=== PATIENT | male | born 1940 | race Caucasian/White ===

== ENCOUNTER → 2021-05-21 14:16 | Outpatient (BNVA) | payer MEDICARE, SELFPAY | PROVIDERS: PCP Internal Medicine; Visit Provider Psychiatry & Neurology Neurology | DX: G20 Parkinson's disease (principal); G47.33 Obstructive sleep apnea (adult) (pediatric); R56.9 Unspecified convulsions; Z79.899 Other long term (current) drug therapy | CPT/HCPCS: 99212 ==

== ENCOUNTER → 2021-08-20 15:04 | Outpatient (BNVA) | payer MEDICARE, SELFPAY | PROVIDERS: PCP General Practice; Visit Provider Psychiatry & Neurology Neurology | DX: G20 Parkinson's disease (principal); G25.0 Essential tremor; G47.33 Obstructive sleep apnea (adult) (pediatric); Z79.899 Other long term (current) drug therapy | CPT/HCPCS: 99212 ==

== ENCOUNTER → 2022-01-27 12:03 | Outpatient (BNVA) | payer MEDICARE, SELFPAY | PROVIDERS: Visit Provider Psychiatry & Neurology Neurology | DX: G20 Parkinson's disease (principal); G25.0 Essential tremor; G47.33 Obstructive sleep apnea (adult) (pediatric); R56.9 Unspecified convulsions | CPT/HCPCS: Q3014 ==

== ENCOUNTER 2022-10-14 05:41 | Outpatient (REF) | payer OTHER, SELFPAY ==
[2022-10-14 07:02] LABS: MANUAL DIFF FLAG NO
[2022-10-14 07:09] LABS: Basophils Absolute Auto 0.1 X10*3/uL (0.0-0.2); Basophils Percent Auto 0.6 % (0-2); Eosinophils Absolute Auto 0.3 X10*3/uL (0.0-0.4); Eosinophils Percent Auto 2.5 % (0-4); Hematocrit 42.5 % (42.0-52.0); Hemoglobin 14.4 g/dl (14.0-18.0); Imm Gran Abs Auto 0.04 X10*3/uL (0.00-0.03); Imm Gran Pct Auto 0.4 % (0.0-0.4); Lymphocytes Absolute Auto 2.5 X10*3/uL (1.2-4.9); Lymphocytes Percent Auto 25.2 % (20-40); Mean Corpuscular HGB Conc 33.9 g/dl (31.0-36.0); Mean Corpuscular Hemoglobin 31.6 pg (27.0-33.0); Mean Corpuscular Volume 93.2 fL (80.0-98.0); Mean Platelet Volume 11.1 fL (9.4-12.4); Monocytes Absolute Auto 0.7 X10*3/uL (0.1-1.2); Monocytes Percent Auto 7.2 % (2-11); Neutrophils Absolute Auto 6.4 x10*3/uL (2.0-8.3); Neutrophils Percent Auto 64.1 % (45-73); Platelet Count 159 X10*3/uL (160-400); Red Blood Count 4.56 X10*6/uL (4.60-5.80); Red Cell Distribution Width 13.6 % (11.0-16.0)
[2022-10-14 07:19] LABS: Estimated Average Glucose 114 mg/dL; Hemoglobin A1c % 5.6 %
[2022-10-14 07:27] LABS: Alanine Aminotransferase 13 U/L (0-40); Albumin Level 3.6 g/dL (3.5-5.0); Alkaline Phosphatase 81 U/L (39-117); Anion Gap 15 (12-20); Aspartate Amino Transferase 31 U/L (5-37); Bilirubin Total 0.4 mg/dL (0.0-1.0); Blood Urea Nitrogen 19 mg/dL (9-16); Carbon Dioxide 27 mmol/L (22-29); Chloride 102 mmol/L (96-108); Cholesterol 133 mg/dL; Estimated Glomerular Filt Rate > 60; Glucose Fasting 123 mg/dL (60-99); HDL Cholesterol 47 mg/dL; LDL Cholesterol Calculated 73 mg/dl; Potassium 3.7 mmol/L (3.3-5.1); Sodium 140 mmol/L (135-145); Total Protein 6.2 g/dL (6.5-8.0); Triglycerides 69 mg/dL
[2022-10-14 07:43] LABS: Prostate Specific Antigen 2.04 ng/mL (<0.05-4.0); Thyroid Stimulating Hormone 1.14 uIU/mL (0.32-4.0); Vitamin D 25-OH Total 20.4 ng/mL (>30)
[2022-10-14 07:55] LABS: Erythrocyte Sedimentation Rate 4 MM/HR (0-15)
[2022-10-16 22:28] LABS: TS Negative Control Passed; TS Panel A 1; TS Panel B 3; TS Positive Control Passed; TSpotTB Negative (Negative)
== END 2022-10-14 05:42 | disposition home or self-care (01) ==
LOC: HO.HSH2E 05:41
PROVIDERS: Visit Provider Internal Medicine Medical Oncology
DX: I10 Essential (primary) hypertension (principal); E11.9 Type 2 diabetes mellitus without complications; Z12.5 Encounter for screening for malignant neoplasm of prostate; M81.0 Age-related osteoporosis without current pathological fracture
CPT/HCPCS: 36415; 80053; 80061; 82306; 83036; 84153; 84443; 85025; 85652; 86481

== ENCOUNTER 2022-10-18 11:03 | Outpatient (REF) | payer OTHER, SELFPAY ==
[2022-10-18 11:18] LABS: Appearance Urine Turbid; Color Urine Yellow; Glucose Urine UA Negative (Negative); Leukocyte Esterase Urine Large (3+) (Negative); Nitrite Urine Positive (Negative); Specific Gravity - Urine 1.015 (1.005-1.025); UMIC TRIGGER UA YES; Urine Blood Small (1+) (Negative); Urine Ketones Negative (Negative); Urine Protein 30 (1+) mg/dL (Neg-Trace)
[2022-10-18 11:29] LABS: Bacteria Urine 4+ (None Seen); Hyaline Casts Urine 0-2 /LPF (0-2); RBC Urine 0-2 /HPF (0-2); Squamous Epithelial Cell Urine 0-2 /HPF (0-2); WBC Urine >50 /HPF (0-5)
== END 2022-10-18 11:04 | disposition home or self-care (01) ==
LOC: HO.HSH2E 11:03
PROVIDERS: Visit Provider Internal Medicine Medical Oncology
DX: R35.0 Frequency of micturition (principal); R39.15 Urgency of urination
CPT/HCPCS: 81001; 87086; 87088; 87186

== ENCOUNTER 2022-10-18 14:04 | Outpatient (REF) | payer OTHER, SELFPAY ==
[2022-10-18 14:12] LABS: MANUAL DIFF FLAG NO
[2022-10-18 14:16] LABS: Basophils Absolute Auto 0.1 X10*3/uL (0.0-0.2); Basophils Percent Auto 0.4 % (0-2); Eosinophils Percent Auto 0.3 % (0-4); Hematocrit 43.7 % (42.0-52.0); Hemoglobin 14.9 g/dl (14.0-18.0); Imm Gran Abs Auto 0.06 X10*3/uL (0.00-0.03); Imm Gran Pct Auto 0.5 % (0.0-0.4); Lymphocytes Absolute Auto 0.7 X10*3/uL (1.2-4.9); Lymphocytes Percent Auto 5.1 % (20-40); Mean Corpuscular HGB Conc 34.1 g/dl (31.0-36.0); Mean Corpuscular Hemoglobin 32.2 pg (27.0-33.0); Mean Corpuscular Volume 94.4 fL (80.0-98.0); Mean Platelet Volume 11.4 fL (9.4-12.4); Monocytes Absolute Auto 1.1 X10*3/uL (0.1-1.2); Monocytes Percent Auto 8.1 % (2-11); Neutrophils Absolute Auto 11.2 x10*3/uL (2.0-8.3); Neutrophils Percent Auto 85.6 % (45-73); Platelet Count 151 X10*3/uL (160-400); Red Blood Count 4.63 X10*6/uL (4.60-5.80); Red Cell Distribution Width 13.9 % (11.0-16.0)
[2022-10-18 15:14] LABS: Alanine Aminotransferase 13 U/L (0-40); Albumin Level 3.8 g/dL (3.5-5.0); Alkaline Phosphatase 86 U/L (39-117); Anion Gap 12 (12-20); Aspartate Amino Transferase 23 U/L (5-37); Bilirubin Total 0.5 mg/dL (0.0-1.0); Blood Urea Nitrogen 13 mg/dL (9-16); Carbon Dioxide 26 mmol/L (22-29); Chloride 102 mmol/L (96-108); Estimated Glomerular Filt Rate > 60; Glucose Random 138 mg/dL (60-115); Potassium 3.3 mmol/L (3.3-5.1); Sodium 137 mmol/L (135-145); Total Protein 6.6 g/dL (6.5-8.0)
== END 2022-10-18 14:05 | disposition home or self-care (01) ==
LOC: HO.HSH2E 14:04
PROVIDERS: Visit Provider Internal Medicine Medical Oncology
DX: Z13.89 Encounter for screening for other disorder (principal)
CPT/HCPCS: 36415; 80053; 85025

== ENCOUNTER 2022-11-03 09:00 | Outpatient (AMB) | payer MEDICARE, SELFPAY ==
--- NOTE | 2022-11-03 09:17 | HO.VETSHOME ---
Intake Intake Visit Reasons: Frequency/Urgency Intake Note: [facility] Patient is Present for Frequency/Urgency Urology Medication: Terazosin Antibiotic Allergy: None Blood Thinner: Aspirin Allergies No Known Allergies Allergy (Verified 11/03/22 09:18) HPI HPI Comments History of Present Illness Details Saul is a pleasant male. He is a resident of [facility]. 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 In addition has Parkinson's Current therapy includes finasteride with terazosin High risk for recurrent UTI Recommend suprapubic tube placement Discussed with ex who is his healthcare proxy - [phone] [facility] Medical History Diabetes Essential tremor HTN (hypertension) Hyperlipidemia Obstructive sleep apnea Parkinson's disease Seizures Skin cancer (melanoma) Surgical History H/O brain surgery Family History Father Cancer Father Cancer Brother Heart attack Social History Alcohol intake: former Year quit: soci Patient Tobacco Use Status: Never used Tobacco Review of Systems Const Denies chills and Denies fever(s) Card Reports no additional complaints and Denies syncope Resp Denies cough GI Denies abdominal pain and Denies heartburn Reports as per HPI and Denies change in libido Neuro Denies syncope Psych Denies change in libido Endo Denies change in libido Physical Exam Const General: cooperative, healthy appearing, comfortable and no acute distress Orientation/consciousness: patient oriented x3 HEENT Face and sinus: Yes normal facial exam Mouth: moist mucous membranes Neck Neck: Yes normal visual inspection, Yes full ROM and Yes trachea midline Chest Chest palpation & inspection: normal inspection of the chest Resp Effort & Inspection: normal respiratory effort, able to speak in complete sentences and no respiratory distress GI Inspection: Yes normal to inspection Back/Spine/Pelvis Cervical Spine: normal cervical lordosis Thoracic/Lumbar Spine: thoracic and lumbar spine normal to inspection Skin General skin exam: no rashes or lesions noted Neuro General: patient oriented x3, gait normal, tone normal and moves all extremities Extrem General: Yes normal to inspection and Yes capillary refill normal Assessment & Plan Assessment & Plan (1) Parkinson's disease: Code(s): G20 - Parkinson's disease (2) Neurogenic urinary bladder disorder: Code(s): N31.9 - Neuromuscular dysfunction of bladder, unspecified Plan Risks, benefits and alternatives to therapy were discussed. These include but are not limited to infection, bleeding, damage to local organs and tissues, need for further interventions. Anesthetic risks regarding cardiac arrhythmia, blood clots, and potential mortality were discussed. The patient understands the typical recovery time and the outpatient nature of the procedure. After consideration of these risks the patient gives full informed consent and they wish to move ahead with the procedure. - suprapubic tube placement Patient Instructions: Imaging studies, laboratory and physical exam results were discussed and reviewed in detail. No major barriers to patient understanding were identified. An opportunity to ask questions regarding the treatment plan was provided. All questions were answered. The patient expressed understanding and agreement with the above treatment plan. The patient is aware they should contact our office by phone for worsening of their current condition or the appearance of new urologic symptoms. Compliance is encouraged with any medications and followup testing that is ordered. It is a privilege to participate in the urologic care of your patient. If you have any questions or concerns regarding treatment for the above conditions, or other urologic issues, please do not hesitate to contact me. The office telephone contact is [phone]. This note is constructed using voice recognition software. While every effort has been made to ensure accuracy radio station audio engineer errors may have been included. Yours sincerely, Dr Uday Daniels MD, ARNAV [facility] - Urology Providers of Expert, Compassionate Care for the Genitourinary System Coding Level of Care Code 66611-[id number] Fac initial, high Diagnoses Parkinson's disease G20 Neurogenic urinary bladder disorder N31.9
== END 2022-11-03 15:30 | disposition home or self-care (01) ==
LOC: HO.HUSV 09:00
PROVIDERS: Visit Provider Urology
DX: G20 Parkinson's disease (principal); N31.9 Neuromuscular dysfunction of bladder, unspecified
CPT/HCPCS: 99306

== ENCOUNTER 2022-11-24 23:17 | Outpatient (REF) | payer MEDICARE, SELFPAY ==
[2022-11-24 23:26] LABS: Appearance Urine Clear; Color Urine Yellow; Glucose Urine UA Negative (Negative); Leukocyte Esterase Urine Small (1+) (Negative); Nitrite Urine Negative (Negative); Specific Gravity - Urine 1.015 (1.005-1.025); UMIC TRIGGER UACC YES; Urine Blood Negative (Negative); Urine Ketones Negative (Negative); Urine Protein Negative (Neg-Trace)
[2022-11-24 23:37] LABS: Creatinine Urine 59.79 mg/dL; Microalbum/Creatinine Ratio Ur 16.7 ug/mg cr (<30)
[2022-11-24 23:39] LABS: Bacteria Urine 2+ (None Seen); Hyaline Casts Urine 0-2 /LPF (0-2); RBC Urine 0-2 /HPF (0-2); Squamous Epithelial Cell Urine 0-2 /HPF (0-2); UACC Culture Trigger YES
== END 2022-11-24 23:18 | disposition home or self-care (01) ==
LOC: HO.HSH3E 23:17
PROVIDERS: Visit Provider Internal Medicine Medical Oncology
DX: N18.2 Chronic kidney disease, stage 2 (mild) (principal); E11.21 Type 2 diabetes mellitus with diabetic nephropathy; R82.90 Unspecified abnormal findings in urine
CPT/HCPCS: 81001; 82043; 82570; 87086; 87088; 87186

== ENCOUNTER 2023-01-03 09:48 | Day surgery (SDC) | payer MEDICARE, SELFPAY ==
--- NOTE | 2022-12-31 10:49 | HO.ANESPROP2 ---
Documented by User: Janelle Collins NP 12/31/22 10:53 HPI - Anesthesia Eval Consult details Narrative: 82yo M for cysto Insertion Suprapubic Tube CVA 04/2022 - asa only now s/p benign brain tumor resect 2005 Parkinsons Seizures (stable on meds without seizure in years per outside med records) [facility] Active Problems Active Problems: All Active Problems (Updated 12/31/22 @ 06:40 by Melody Royal RN) Neurogenic urinary bladder disorder (Acute) Parkinson's disease (Acute) Essential tremor (Acute) Obstructive sleep apnea (Acute) Seizures (Acute) Hyperlipidemia (Acute) HTN (hypertension) (Acute) Diabetes (Acute) Past Medical History Medical History GEORGE (acute kidney injury) Urine retention BPH (benign prostatic hyperplasia) Anemia Constipation CVA (cerebral vascular accident) Skin cancer (melanoma) Parkinson's disease Essential tremor Obstructive sleep apnea Seizures Hyperlipidemia HTN (hypertension) Diabetes Family History Family History Father Cancer Father Cancer Brother Heart attack Surgical History Surgical History H/O brain surgery Social History Social History Alcohol intake: former Year quit: soci Patient Tobacco Use Status: Never used Tobacco Substance Use Frequency: Monthly Last Used Substance: Hours (ago) Have you been hit, kicked, punched, or otherwise hurt by someone within the past year? If so, by whom?: No Are you DNR?: Yes Advance Directives: No Advance Directives Information Provided: Yes Advance Directives on File: Yes Recently lost weight without trying: No Eating poorly because of decreased appetite: No Nutrition Risks: No Nutritional Risk Poor oral hygiene: No Meds Allergies Allergy/AdvReac Type Severity Reaction Status Date / Time lisinopril Allergy Unknown Verified 12/31/22 06:41 phenytoin [From Dilantin] Allergy Unknown Verified 12/31/22 06:42 Home Medications Medication Instructions Recorded Confirmed Last Taken Type aspirin 81 mg tablet,delayed 81 mg PO DAILY 04/22/21 12/31/22 12/26/22 History release (Adult Low Dose Aspirin) folic acid 1 mg tablet 1 mg PO DAILY 04/22/21 12/31/22 Unknown History rosuvastatin 40 mg tablet (Crestor) 40 mg PO DAILY 04/22/21 12/31/22 Unknown History multivitamin 1 tab PO DAILY 08/20/21 12/31/22 Unknown History omega-3 fatty acids-fish oil 340 1 cap PO DAILY 08/20/21 12/31/22 Unknown History mg-1,000 mg capsule (Fish Oil) terazosin 2 mg capsule 2 mg PO BEDTIME 11/01/22 12/31/22 Unknown History acetaminophen 325 mg tablet 650 mg PO Q4H PRN Pain 12/31/22 12/31/22 Unknown History aluminum-mag hydroxide-simethicone 30 ml PO Q2-3H PRN Heartburn 12/31/22 12/31/22 Unknown History 200 mg-200 mg-20 mg/5 mL oral susp bisacodyl 10 mg rectal suppository 10 mg NE DAILY PRN Constipation 12/31/22 12/31/22 Unknown History cholecalciferol (vitamin D3) 25 25 mcg PO DAILY 12/31/22 12/31/22 Unknown History mcg (1,000 unit) capsule (Vitamin D3) dicyclomine 10 mg capsule 10 mg PO TID PRN Abdominal Pain 12/31/22 12/31/22 Unknown History docusate sodium 100 mg capsule 100 mg PO DAILY 12/31/22 12/31/22 Unknown History finasteride 5 mg tablet 5 mg PO DAILY 12/31/22 12/31/22 Unknown History fludrocortisone 0.1 mg tablet 0.05 mg PO DAILY 12/31/22 12/31/22 Unknown History levetiracetam 750 mg tablet 750 mg PO BID 12/31/22 12/31/22 Unknown History melatonin 3 mg tablet 3 mg PO BEDTIME 12/31/22 12/31/22 Unknown History metoprolol tartrate 25 mg tablet 12.5 mg PO BID 12/31/22 12/31/22 Unknown History polyethylene glycol 3350 17 gram 17 g PO DAILY 12/31/22 12/31/22 Unknown History oral powder packet primidone 250 mg tablet 250 mg PO BID 12/31/22 12/31/22 Unknown History sertraline 25 mg tablet 25 mg PO DAILY 12/31/22 12/31/22 Unknown History sodium phosphates 19 gram-7 118 ml NE DAILY PRN Constipation 12/31/22 12/31/22 Unknown History gram/118 mL enema (Fleet Enema) Exam Exam Date and Time: December 31, 2022 1049 Pertinent Lab Results Pertinent Lab Results: Laboratory Tests 10/18/22 12:44 WBC 13.0 H Hgb 14.9 Hct 43.7 Plt Count 151 L Sodium 137 Potassium 3.3 Chloride 102 Carbon Dioxide 26 BUN 13 Creatinine 0.96 Assessment and Plan Assessment Anesthesia Assessment: Chart Reviewed Documented by User: Marixa Ralph MD 01/03/23 11:39 PMFSH Active Problems Active Problems: All Active Problems (Updated 01/03/23 @ 11:10 by Marixa Ralph MD) Neurogenic urinary bladder disorder (Acute) Parkinson's disease (Acute)- walker/ wheelchair Essential tremor (Acute) Obstructive sleep apnea (Acute) - does not use CPAP- cannot tolerate Seizures (Acute) Hyperlipidemia (Acute) HTN (hypertension) (Acute). Denies h/o CAD Diabetes (Acute) H/o TIA 11/02 Past Medical History Medical History GEORGE (acute kidney injury) Urine retention BPH (benign prostatic hyperplasia) Anemia Constipation CVA (cerebral vascular accident) Skin cancer (melanoma) Parkinson's disease Essential tremor Obstructive sleep apnea Seizures Hyperlipidemia HTN (hypertension) Diabetes Family History Family History Father Cancer Father Cancer Brother Heart attack Surgical History Surgical History H/O brain surgery Social History Social History Alcohol intake: former Year quit: soci Patient Tobacco Use Status: Never used Tobacco Substance Use Frequency: Monthly Last Used Substance: Hours (ago) Have you been hit, kicked, punched, or otherwise hurt by someone within the past year? If so, by whom?: No Are you DNR?: Yes Advance Directives: No Advance Directives Information Provided: Yes Advance Directives on File: Yes Recently lost weight without trying: No Eating poorly because of decreased appetite: No Nutrition Risks: No Nutritional Risk Poor oral hygiene: No Meds Allergies Allergy/AdvReac Type Severity Reaction Status Date / Time lisinopril Allergy Unknown Verified 12/31/22 06:41 phenytoin [From Dilantin] Allergy Unknown Verified 12/31/22 06:42 Home Medications Medication Instructions Recorded Confirmed Last Taken Type aspirin 81 mg tablet,delayed 81 mg PO DAILY 04/22/21 12/31/22 12/26/22 History release (Adult Low Dose Aspirin) folic acid 1 mg tablet 1 mg PO DAILY 04/22/21 12/31/22 Unknown History rosuvastatin 40 mg tablet (Crestor) 40 mg PO DAILY 04/22/21 12/31/22 Unknown History multivitamin 1 tab PO DAILY 08/20/21 12/31/22 Unknown History omega-3 fatty acids-fish oil 340 1 cap PO DAILY 08/20/21 12/31/22 Unknown History mg-1,000 mg capsule (Fish Oil) terazosin 2 mg capsule 2 mg PO BEDTIME 11/01/22 12/31/22 Unknown History acetaminophen 325 mg tablet 650 mg PO Q4H PRN Pain 12/31/22 12/31/22 Unknown History aluminum-mag hydroxide-simethicone 30 ml PO Q2-3H PRN Heartburn 12/31/22 12/31/22 Unknown History 200 mg-200 mg-20 mg/5 mL oral susp bisacodyl 10 mg rectal suppository 10 mg NE DAILY PRN Constipation 12/31/22 12/31/22 Unknown History cholecalciferol (vitamin D3) 25 25 mcg PO DAILY 12/31/22 12/31/22 Unknown History mcg (1,000 unit) capsule (Vitamin D3) dicyclomine 10 mg capsule 10 mg PO TID PRN Abdominal Pain 12/31/22 12/31/22 Unknown History docusate sodium 100 mg capsule 100 mg PO DAILY 12/31/22 12/31/22 Unknown History finasteride 5 mg tablet 5 mg PO DAILY 12/31/22 12/31/22 Unknown History fludrocortisone 0.1 mg tablet 0.05 mg PO DAILY 12/31/22 12/31/22 Unknown History levetiracetam 750 mg tablet 750 mg PO BID 12/31/22 12/31/22 Unknown History melatonin 3 mg tablet 3 mg PO BEDTIME 12/31/22 12/31/22 Unknown History metoprolol tartrate 25 mg tablet 12.5 mg PO BID 12/31/22 12/31/22 Unknown History polyethylene glycol 3350 17 gram 17 g PO DAILY 12/31/22 12/31/22 Unknown History oral powder packet primidone 250 mg tablet 250 mg PO BID 12/31/22 12/31/22 Unknown History sertraline 25 mg tablet 25 mg PO DAILY 12/31/22 12/31/22 Unknown History sodium phosphates 19 gram-7 118 ml NE DAILY PRN Constipation 12/31/22 12/31/22 Unknown History gram/118 mL enema (Fleet Enema) Exam Exam Date and Time: January 03, 2023 11:30 Height,Weight and Vital Signs: Height 5 ft 8 in Weight 70.76 kg Vital Signs Temp Pulse Resp BP Pulse Ox O2 Del Method 01/03/23 10:54 97.9 F 51 18 163/77 H 96 Room Air Airway Loose/Missing/Broken Teeth: Yes (Partial denture top. Missing teeth 1 front and 1 back right bottom. Denies broken or loose teeth) Heart: RRR Lungs: CTAB Assessment and Plan Final Anesthetic Review Assessment/Block/Sedation in SS: Assess/Block/Sedation-SS Anesthetic Plan Anesthetic Plan: GA Documented by User: Shalonda Vogel MD 01/03/23 11:35 PMFSH Past Medical History Medical History GEORGE (acute kidney injury) Urine retention BPH (benign prostatic hyperplasia) Anemia Constipation CVA (cerebral vascular accident) Skin cancer (melanoma) Parkinson's disease Essential tremor Obstructive sleep apnea Seizures Hyperlipidemia HTN (hypertension) Diabetes Family History Family History Father Cancer Father Cancer Brother Heart attack Family history of problems with anesthesia: No Surgical History Surgical History H/O brain surgery History of Problems with Anesthesia: No Social History Social History Alcohol intake: former Year quit: soci Patient Tobacco Use Status: Never used Tobacco Substance Use Frequency: Monthly Last Used Substance: Hours (ago) Have you been hit, kicked, punched, or otherwise hurt by someone within the past year? If so, by whom?: No Are you DNR?: Yes Advance Directives: No Advance Directives Information Provided: Yes Advance Directives on File: Yes Recently lost weight without trying: No Eating poorly because of decreased appetite: No Nutrition Risks: No Nutritional Risk Poor oral hygiene: No Meds Allergies Allergy/AdvReac Type Severity Reaction Status Date / Time lisinopril Allergy Unknown Verified 12/31/22 06:41 phenytoin [From Dilantin] Allergy Unknown Verified 12/31/22 06:42 Home Medications Medication Instructions Recorded Confirmed Last Taken Type aspirin 81 mg tablet,delayed 81 mg PO DAILY 04/22/21 12/31/22 12/26/22 History release (Adult Low Dose Aspirin) folic acid 1 mg tablet 1 mg PO DAILY 04/22/21 12/31/22 Unknown History rosuvastatin 40 mg tablet (Crestor) 40 mg PO DAILY 04/22/21 12/31/22 Unknown History multivitamin 1 tab PO DAILY 08/20/21 12/31/22 Unknown History omega-3 fatty acids-fish oil 340 1 cap PO DAILY 08/20/21 12/31/22 Unknown History mg-1,000 mg capsule (Fish Oil) terazosin 2 mg capsule 2 mg PO BEDTIME 11/01/22 12/31/22 Unknown History acetaminophen 325 mg tablet 650 mg PO Q4H PRN Pain 12/31/22 12/31/22 Unknown History aluminum-mag hydroxide-simethicone 30 ml PO Q2-3H PRN Heartburn 12/31/22 12/31/22 Unknown History 200 mg-200 mg-20 mg/5 mL oral susp bisacodyl 10 mg rectal suppository 10 mg NE DAILY PRN Constipation 12/31/22 12/31/22 Unknown History cholecalciferol (vitamin D3) 25 25 mcg PO DAILY 12/31/22 12/31/22 Unknown History mcg (1,000 unit) capsule (Vitamin D3) dicyclomine 10 mg capsule 10 mg PO TID PRN Abdominal Pain 12/31/22 12/31/22 Unknown History docusate sodium 100 mg capsule 100 mg PO DAILY 12/31/22 12/31/22 Unknown History finasteride 5 mg tablet 5 mg PO DAILY 12/31/22 12/31/22 Unknown History fludrocortisone 0.1 mg tablet 0.05 mg PO DAILY 12/31/22 12/31/22 Unknown History levetiracetam 750 mg tablet 750 mg PO BID 12/31/22 12/31/22 Unknown History melatonin 3 mg tablet 3 mg PO BEDTIME 12/31/22 12/31/22 Unknown History metoprolol tartrate 25 mg tablet 12.5 mg PO BID 12/31/22 12/31/22 Unknown History polyethylene glycol 3350 17 gram 17 g PO DAILY 12/31/22 12/31/22 Unknown History oral powder packet primidone 250 mg tablet 250 mg PO BID 12/31/22 12/31/22 Unknown History sertraline 25 mg tablet 25 mg PO DAILY 12/31/22 12/31/22 Unknown History sodium phosphates 19 gram-7 118 ml NE DAILY PRN Constipation 12/31/22 12/31/22 Unknown History gram/118 mL enema (Fleet Enema) Exam Airway Mallampati Class: III TM Dist: <=3cm Neck ROM: Limited Partial: Upper Heart: rrr Lungs: cta Assessment and Plan Assessment Anesthesia Assessment: Anesthesia Plan Discussed Final Anesthetic Review Family History of Problems with Anesthesia: No History of Problems with Anesthesia: No NPO: Yes ASA Class: III and Emergency Final Preanesthetic Review: No Changes in Pt Med Stat, Meds/Allgs Chart Reviewed, Consent Obtained/Reviewed, Anes Risks/Benef Reviewed and DNR Form (If Appl.) (revoked for anesthesia ) Patient Risk: Intermediate Procedure Risk: Low Anesthetic Plan Anesthetic Plan: MAC: Disposition: Standard PACU
[2023-01-03 10:40] LABS: Glucose, Whole Blood 96 mg/dL (60-115)
[2023-01-03 10:54] VITALS: BP 163/77; PULSE 51; RESP 18; TEMP 36.6; O2SAT 96; BMI 23.7
[2023-01-03] MEDS: Lactated Ringers 1,000 ML 100 ML IVCONT (11:10)
[2023-01-03] MEDS: levoFLOXacin 500 MG TABLET PO (11:52)
--- NOTE | 2023-01-03 12:22 | W.PM.OPN ---
Operative Note Operative Note Date of Service: 01/03/23 Narrative: PreOperative Diagnosis:?neurogenic bladder Post Operative Diagnosis:?neurogenic bladder Procedure:? 1. Cystoscopy 2. Suprapubic tube placement Surgeon: Dr Uday Daniels Anesthesia:?Sedation plus local Indications for procedure: failed multiple voiding trials in setting of seizures with recurrent UTI Procedure: After informed consent was verified the patient was brought to the operating room and placed in a supine position.? Anesthesia was administered per protocol. The patient was placed in a modified dorsal lithotomy position and prepped and draped in a sterile fashion. A safety pause was performed confirming patient identity, procedure and antibiotics. A 22 Welsh cystoscope was inserted per urethra. Bladder was examined in its entirety. No abnormalities seen. Air bubble was located at the dome of the bladder. A finder needle was inserted 2 fingerbreaths above the symphysis pubis on the abdomen into the bladder.? The needle was visualized in the bladder via cystoscopy. Local anesthetic was infiltrated subcutaneously around the needle introduction site. A small, 1cm horizontal incision was made.? A trocar introducer was advanced through the abdominal wall into the bladder under visualization. The obturator was removed and a 16 Fr real catheter placed. 7cc was used to inflate the balloon. The external portion of the trocar was removed. Dressing was placed, the bladder was emptied, and a drainage bag was attached. The patient tolerated the procedure and was transferred in stable condition to the recovery area. Suprapubic tube will be changed in 1 month with a follow-up office visit.
[2023-01-03 12:34] VITALS: BP 157/72; PULSE 50; RESP 16; TEMP 36.5; O2SAT 94
[2023-01-03 12:39] VITALS: BP 147/66; PULSE 49; RESP 16; O2SAT 94
[2023-01-03 12:42] LABS: Glucose, Whole Blood 94 mg/dL (60-115)
[2023-01-03 12:44] VITALS: BP 169/80; PULSE 48; RESP 16; O2SAT 94
[2023-01-03 12:49] VITALS: BP 169/77; PULSE 47; RESP 16; O2SAT 94
[2023-01-03 13:04] VITALS: BP 171/78; PULSE 49; RESP 16; TEMP 36.3; O2SAT 96
== END 2023-01-03 13:22 | disposition home or self-care (01) ==
PROVIDERS: PCP Internal Medicine Medical Oncology; Visit Provider Urology
PROC: (CPT 51102; principal; 2023-01-03 12:10)
DX: N31.9 Neuromuscular dysfunction of bladder, unspecified (principal); R33.9 Retention of urine, unspecified; Z87.440 Personal history of urinary (tract) infections; E11.9 Type 2 diabetes mellitus without complications; I10 Essential (primary) hypertension; E78.5 Hyperlipidemia, unspecified; G47.33 Obstructive sleep apnea (adult) (pediatric); G20.A1 Parkinson's disease without dyskinesia, without mention of fluctuations; G25.0 Essential tremor; R56.9 Unspecified convulsions; D64.9 Anemia, unspecified; Z86.73 Personal history of transient ischemic attack (TIA), and cerebral infarction without residual deficits
CPT/HCPCS: 51102; 82947; J0131; J3010

== ENCOUNTER → 2023-01-03 09:48 | Outpatient (BNV) | payer MEDICARE, SELFPAY | PROVIDERS: PCP Internal Medicine Medical Oncology; Visit Provider Urology | DX: N31.9 Neuromuscular dysfunction of bladder, unspecified (principal) | CPT/HCPCS: 51102 ==

== ENCOUNTER 2023-01-08 01:50 | Emergency (ER) | payer MEDICARE, SELFPAY ==
[2023-01-08 02:02] VITALS: BP 178/82; PULSE 58; RESP 18; TEMP 36.4; O2SAT 95; BMI 28.5
--- NOTE | 2023-01-08 02:20 | PC.NURSE ---
[facility] suprapubic catheter pain. pt denies pain at this time. staff at home reports pt has elevated BP and reports pt has hx of HTN. pt normal sinus on tele -.
--- NOTE | 2023-01-08 02:26 | PC.NURSE ---
pt has suprapubic catheter in place, no drainage noted around site. catheter draining yellow urine at this time.
--- NOTE | 2023-01-08 03:24 | ED_ITS ---
HPI - Male Genitourinary General Chief complaint: Urogenital-Male Stated complaint: Catheter pain Time Seen by Provider: 01/08/23 03:17 Source: patient and EMS Mode of arrival: EMS Limitations: no limitations History of Present Illness HPI Narrative: Patient comes in the emergency room complaining from his shoulders home. Patient states that he complained earlier today of abdominal pain around the suprapubic area where he has a catheter. However, the patient's pain resolved, but they made him come anyways. Patient states that since he arrived here, he has no pain and feels well. Denies fever or chills Related Data Home Medications Medication Instructions Recorded Confirmed aspirin 81 mg tablet,delayed 81 mg PO DAILY 04/22/21 12/31/22 release (Adult Low Dose Aspirin) folic acid 1 mg tablet 1 mg PO DAILY 04/22/21 12/31/22 rosuvastatin 40 mg tablet (Crestor) 40 mg PO DAILY 04/22/21 12/31/22 multivitamin 1 tab PO DAILY 08/20/21 12/31/22 omega-3 fatty acids-fish oil 340 1 cap PO DAILY 08/20/21 12/31/22 mg-1,000 mg capsule (Fish Oil) terazosin 2 mg capsule 2 mg PO BEDTIME 11/01/22 12/31/22 acetaminophen 325 mg tablet 650 mg PO Q4H PRN Pain 12/31/22 12/31/22 aluminum-mag hydroxide-simethicone 30 ml PO Q2-3H PRN Heartburn 12/31/22 12/31/22 200 mg-200 mg-20 mg/5 mL oral susp bisacodyl 10 mg rectal suppository 10 mg FL DAILY PRN Constipation 12/31/22 12/31/22 cholecalciferol (vitamin D3) 25 25 mcg PO DAILY 12/31/22 12/31/22 mcg (1,000 unit) capsule (Vitamin D3) dicyclomine 10 mg capsule 10 mg PO TID PRN Abdominal Pain 12/31/22 12/31/22 docusate sodium 100 mg capsule 100 mg PO DAILY 12/31/22 12/31/22 finasteride 5 mg tablet 5 mg PO DAILY 12/31/22 12/31/22 fludrocortisone 0.1 mg tablet 0.05 mg PO DAILY 12/31/22 12/31/22 levetiracetam 750 mg tablet 750 mg PO BID 12/31/22 12/31/22 melatonin 3 mg tablet 3 mg PO BEDTIME 12/31/22 12/31/22 metoprolol tartrate 25 mg tablet 12.5 mg PO BID 12/31/22 12/31/22 polyethylene glycol 3350 17 gram 17 g PO DAILY 12/31/22 12/31/22 oral powder packet primidone 250 mg tablet 250 mg PO BID 12/31/22 12/31/22 sertraline 25 mg tablet 25 mg PO DAILY 12/31/22 12/31/22 sodium phosphates 19 gram-7 118 ml FL DAILY PRN Constipation 12/31/22 12/31/22 gram/118 mL enema (Fleet Enema) Previous Rx's Medication Instructions Recorded carbidopa 25 mg-levodopa 100 mg 2 tab PO QID #240 tabs 05/31/22 tablet Allergies Allergy/AdvReac Type Severity Reaction Status Date / Time lisinopril Allergy Unknown Verified 01/08/23 02:06 phenytoin [From Dilantin] Allergy Unknown Verified 01/08/23 02:06 Review of Systems Review of Systems: Constitutional : No Weight loss, No Fever, No Chills, No Night Sweats, No Fatigue, No Malaise ENT/Mouth : No Hearing loss, No Ear Pain, No Nasal Congestion, No Sinus Pain, No Hoarseness, No sore throat, No Rhinorrhea, No Swallowing Difficulty Eyes: No Eye Pain, No Swelling, No Redness, No Foreign Body, No Discharge, No Vision Changes Cardiovascular : No Chest Pain, No SOB, No Dyspnea on Exertion, No Orthopnea, No Edema, No Palpitations Respiratory : No Cough, No Sputum, No Wheezing, No Smoke Exposure, No Dyspnea Gastrointestinal : No Nausea, No Vomiting, No Diarrhea, No Constipation, complain of suprapubic pain earlier today at self resolve within a few minutes Genitourinary : no irregular bleeding, No Dysuria, No Urinary Frequency, No Hematuria, No Urinary Incontinence, No Urgency, No Flank Pain, No Urinary Flow Changes, No Hesitancy Musculoskeletal : No joint pain, No Myalgias, No Joint Swelling Skin : No Skin Lesions, No rash Neuro : No Weakness, No Numbness, No Paresthesias, No Loss of Consciousness, No Dizziness, No Headache Psych : No Anxiety/Panic, No Depression, No SI/HI/AH/VH, No Social Issues, Heme/Lymph: No Bruising, No Bleeding,No Lymphadenopathy Endocrine : No Polyuria, No Polydipsia, No Temperature Intolerance [facility] Past Medical History Medical History GEORGE (acute kidney injury) Urine retention BPH (benign prostatic hyperplasia) Anemia Constipation CVA (cerebral vascular accident) Skin cancer (melanoma) Parkinson's disease Essential tremor Obstructive sleep apnea Seizures Hyperlipidemia HTN (hypertension) Diabetes Surgical History H/O brain surgery Family History Family History Father Cancer Father Cancer Brother Heart attack Social History Social History Alcohol intake: former Year quit: soci Patient Tobacco Use Status: Never used Tobacco Smoked in Last 30 Days: No Use of substances other than those prescribed or required for medical reasons: No Advance Directives: No Advance Directives Information Provided: No Physical Exam Vital Signs: Vital Signs: Last Vital Signs Temp 97.6 F 01/08/23 02:02 Pulse 58 01/08/23 02:02 Resp 18 01/08/23 02:02 BP 178/82 H 01/08/23 02:02 Pulse Ox 95 01/08/23 02:02 O2 Del Method Room Air 01/08/23 02:02 BMI result Body Mass Index 28.5 Const: Other: Appearance: Alert. Oriented X3. No acute distress. Eyes: Pupils equal, round and reactive to light. ENT: Pharynx normal. Neck: Normal inspection. Neck supple. No lymph nodes noted. No crepitus CVS: Normal heart rate and rhythm. Pulses normal. Normal S1 and S2 Respiratory: No respiratory distress. Breath sounds normal. No Wheezing. No rales Abdomen: Soft and nontender. No rigidity. No distention. Suprapubic catheter in place, no erythema, no drainage Skin: Skin warm and dry. Normal skin color. Normal skin turgor. Extremities: No lower extremity edema. No Lacerations. No Rash Neuro: Oriented X 3. No motor deficit. No sensory deficit. Moving all extremities. No slurred speech. CN 2 through 12 grossly intact Psych: calm, cooperative, normal affect Course Course Course Narrative: -we will obtain a urine sample and a bladder scan. Patient is asymptomatic -no fever, no chills, no chest pain or shortness of breath, no abdominal pain, no flank pain -blood pressure in the 160s Medical Decision Making Medical Decision Making MDM Narrative: -patient's bladder scan is negative -urinalysis does not show any signs of infection. Patient is completely asymptomatic. Differential Diagnosis Differential Diagnoses: The differential diagnosis associated with the presentation includes (Urinary retention, abdominal cramping, UTI) Lab Data Labs: Lab Results 01/08/23 Range/Units 03:35 Urine Color Yellow Urine Appearance Clear Urine pH 7.0 (5.0-9.0) Ur Specific [place] 1.020 (1.005-1.025) Urine Protein Trace (Neg-Trace) mg/dL Urine Glucose (UA) Negative (Negative) mg/dL Urine Ketones Negative (Negative) mg/dL Urine Blood Moderate (2+) H (Negative) Urine Nitrite Negative (Negative) Ur Leukocyte Esterase Trace H (Negative) Urine RBC >20 H (0-2) /HPF Urine WBC 6-10 H (0-5) /HPF Ur Squamous Epith Cells 0-2 (0-2) /HPF Urine Bacteria None Seen (None Seen) Hyaline Casts 0-2 (0-2) /LPF Discharge Plan Discharge Clinical Impression: Suprapubic discomfort Patient Disposition: Home, Self-Care Instructions: Abdominal Pain (ED) Additional Instructions: Patient has been asymptomatic the whole time. Urinalysis negative for UTI, bladder scan negative for urinary retention. Michele catheter is draining appropriately. Please follow-up with your primary care physician tomorrow. If you have any worsening or new symptoms, please return to the emergency room or call 911 Prescriptions: No Action carbidopa-levodopa 25-100 mg tablet 2 tab PO QID Qty: 240 3RF polyethylene glycol 3350 17 gram Powder In Packet 17 g PO DAILY melatonin 3 mg Tablet 3 mg PO BEDTIME docusate sodium 100 mg Capsule 100 mg PO DAILY levetiracetam 750 mg Tablet 750 mg PO BID fludrocortisone 0.1 mg Tablet 0.05 mg PO DAILY finasteride 5 mg Tablet 5 mg PO DAILY cholecalciferol (vitamin D3) [Vitamin D3] 25 mcg (1,000 unit) Capsule 25 mcg PO DAILY metoprolol tartrate 25 mg Tablet 12.5 mg PO BID primidone 250 mg tablet 250 mg PO BID acetaminophen 325 mg Tablet 650 mg PO Q4H PRN (Reason: Pain) bisacodyl 10 mg Suppository 10 mg FL DAILY PRN (Reason: Constipation) Fleet Enema 19-7 gram/118 mL Enema 118 ml FL DAILY PRN (Reason: Constipation) sertraline 25 mg Tablet 25 mg PO DAILY alum-mag hydroxide-simeth [Maalox] 200-200-20 mg/5 mL Suspension 30 ml PO Q2-3H PRN (Reason: Heartburn) Rx Instructions: administer between meals and at bedtime dicyclomine 10 mg Capsule 10 mg PO TID PRN (Reason: Abdominal Pain) aspirin [Adult Low Dose Aspirin] 81 mg tablet,delayed release (DR/EC) 81 mg PO DAILY rosuvastatin [Crestor] 40 mg tablet 40 mg PO DAILY folic acid 1 mg tablet 1 mg PO DAILY multivitamin Tablet 1 tab PO DAILY Fish Oil 340-1,000 mg capsule 1 cap PO DAILY terazosin 2 mg capsule 2 mg PO BEDTIME
--- NOTE | 2023-01-08 03:38 | PC.NURSE ---
bladder scan done per provider order, bladder scan read less than 0. urine obtained and sent at this time.
[2023-01-08 03:40] LABS: Appearance Urine Clear; Color Urine Yellow; Glucose Urine UA Negative (Negative); Leukocyte Esterase Urine Trace (Negative); Nitrite Urine Negative (Negative); UMIC TRIGGER UACC YES; Urine Blood Moderate (2+) (Negative); Urine Ketones Negative (Negative); Urine Protein Trace mg/dL (Neg-Trace)
[2023-01-08 03:45] LABS: Bacteria Urine None Seen (None Seen); Hyaline Casts Urine 0-2 /LPF (0-2); RBC Urine >20 /HPF (0-2); Squamous Epithelial Cell Urine 0-2 /HPF (0-2); UACC Culture Trigger YES
--- NOTE | 2023-01-08 04:00 | PC.NURSE ---
report given to [facility].
--- NOTE | 2023-01-08 04:11 | MHC.EDTECH ---
call out to ronda at 0411 to book transport for pt back to SNF, estimated eta given was [id number]
[2023-01-08 06:12] VITALS: BP 144/75; PULSE 53; RESP 14; TEMP 36.6; O2SAT 97
--- NOTE | 2023-01-08 07:08 | PC.NURSE ---
ASSUMED CARE OF DC'D PT, AWAITING TRANSPORT BACK TO FACILITY. PT SLEEPING AT THIS TIME, IN NAD, VS WNL.
[2023-01-08 08:00] VITALS: BP 146/74; PULSE 50; RESP 16; O2SAT 95
--- NOTE | 2023-01-08 09:33 | PC.NURSE ---
PT PROVIDED WITH BREAKFAST TRAY. TRANSPORT TO ARRIVE AT 1130
[2023-01-08] MEDS: oxyBUTYnin chloride ER 5 MG TAB.ER.24 10 MG PO (10:49)
== END 2023-01-08 12:18 | disposition home or self-care (01) ==
PROVIDERS: Emergency Provider Emergency Medicine
DX: R10.30 Lower abdominal pain, unspecified (principal); Z96.0 Presence of urogenital implants
CPT/HCPCS: 51798; 81001; 87086; 87088; 87186; 99283; 99285

== ENCOUNTER 2023-02-10 12:22 | Outpatient (AMB) | payer MEDICARE, SELFPAY ==
--- NOTE | 2023-02-10 12:54 | MHC.OFFVIS ---
Intake Intake Visit Reasons: 1st SP Tube Change Allergies lisinopril Allergy (Verified 01/08/23 02:06) Unknown phenytoin [From Dilantin] Allergy (Verified 01/08/23 02:06) Unknown HPI HPI Comments History of Present Illness Details Saul is a pleasant male. He is a resident of [facility]. 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 In addition has Parkinson's Current therapy includes finasteride with terazosin High risk for recurrent UTI Suprapubic tube 02/03 Discussed with ex who is his healthcare proxy - [phone] [facility] Medical History GEORGE (acute kidney injury) Urine retention BPH (benign prostatic hyperplasia) Anemia Constipation CVA (cerebral vascular accident) Skin cancer (melanoma) Parkinson's disease Essential tremor Obstructive sleep apnea Seizures Hyperlipidemia HTN (hypertension) Diabetes Surgical History H/O brain surgery Family History Father Cancer Father Cancer Brother Heart attack Social History Alcohol intake: former Year quit: soci Patient Tobacco Use Status: Never used Tobacco Office Procedures Bladder/Catheter Procedure Details: Suprapubic tube change Well-healed tract 18 Peruvian Michele catheter placed 10 cc balloon Clean technique 26874-[id number] of bladder tube Procedure code (CPT) selection complete Assessment & Plan Assessment & Plan (1) Neurogenic urinary bladder disorder: Code(s): N31.9 - Neuromuscular dysfunction of bladder, unspecified Plan Review next visit to [facility] Patient Instructions: Imaging studies, laboratory and physical exam results were discussed and reviewed in detail. No major barriers to patient understanding were identified. An opportunity to ask questions regarding the treatment plan was provided. All questions were answered. The patient expressed understanding and agreement with the above treatment plan. The patient is aware they should contact our office by phone for worsening of their current condition or the appearance of new urologic symptoms. Compliance is encouraged with any medications and followup testing that is ordered. It is a privilege to participate in the urologic care of your patient. If you have any questions or concerns regarding treatment for the above conditions, or other urologic issues, please do not hesitate to contact me. The office telephone contact is [phone]. This note is constructed using voice recognition software. While every effort has been made to ensure accuracy net architect errors may have been included. Yours sincerely, Dr Uday Daniels MD, ARNAV [facility] - Urology Providers of Expert, Compassionate Care for the Genitourinary System Coding Level of Care Code Est Pt Level 3 (85717) Diagnoses Neurogenic urinary bladder disorder N31.9 CPT Codes Bladder/Catheter Procedure - CPT: 98157-Oayjck of bladder tube ([id number])
== END 2023-02-10 13:17 | disposition home or self-care (01) ==
PROVIDERS: Visit Provider Urology
DX: N31.9 Neuromuscular dysfunction of bladder, unspecified (principal)
CPT/HCPCS: 51705; 99213

== ENCOUNTER → 2023-02-10 12:22 | Outpatient (BNVA) | payer MEDICARE, SELFPAY | PROVIDERS: Visit Provider Urology | DX: N31.9 Neuromuscular dysfunction of bladder, unspecified (principal) | CPT/HCPCS: 51705; 99212 ==

== ENCOUNTER 2023-03-23 13:19 | Outpatient (AMB) | payer MEDICARE, SELFPAY ==
--- NOTE | 2023-03-23 13:21 | MHC.OFFVIS ---
Intake Intake Visit Reasons: pain at SP tube site, hyper-granulation tissue Allergies lisinopril Allergy (Verified 01/08/23 02:06) Unknown phenytoin [From Dilantin] Allergy (Verified 01/08/23 02:06) Unknown HPI HPI Comments History of Present Illness Details Saul is a pleasant male. He is a resident of [facility]. 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 In addition has Parkinson's Current therapy includes finasteride with terazosin High risk for recurrent UTI Suprapubic tube 02/03 Discussed with ex who is his healthcare proxy - [phone] [facility] Medical History GEORGE (acute kidney injury) Urine retention BPH (benign prostatic hyperplasia) Anemia Constipation CVA (cerebral vascular accident) Skin cancer (melanoma) Parkinson's disease Essential tremor Obstructive sleep apnea Seizures Hyperlipidemia HTN (hypertension) Diabetes Surgical History H/O brain surgery Family History Father Cancer Father Cancer Brother Heart attack Social History Alcohol intake: former Year quit: soci Patient Tobacco Use Status: Never used Tobacco Review of Systems Const Denies chills and Denies fever(s) Card Reports no additional complaints and Denies syncope Resp Denies cough GI Denies abdominal pain and Denies heartburn Reports as per HPI and Denies change in libido Neuro Denies syncope Psych Denies change in libido Endo Denies change in libido Physical Exam Const General: cooperative, healthy appearing, comfortable and no acute distress Orientation/consciousness: patient oriented x3 HEENT Face and sinus: Yes normal facial exam Mouth: moist mucous membranes Neck Neck: Yes normal visual inspection, Yes full ROM and Yes trachea midline Chest Chest palpation & inspection: normal inspection of the chest Resp Effort & Inspection: normal respiratory effort, able to speak in complete sentences and no respiratory distress GI Inspection: Yes normal to inspection Back/Spine/Pelvis Cervical Spine: normal cervical lordosis Thoracic/Lumbar Spine: thoracic and lumbar spine normal to inspection Skin General skin exam: no rashes or lesions noted Neuro General: patient oriented x3, gait normal, tone normal and moves all extremities Extrem General: Yes normal to inspection and Yes capillary refill normal Coding
--- NOTE | 2023-04-10 20:19 | HO.VETSHOME ---
Intake Intake Visit Reasons: pain at SP tube site, hyper-granulation tissue Allergies lisinopril Allergy (Verified 01/08/23 02:06) Unknown phenytoin [From Dilantin] Allergy (Verified 01/08/23 02:06) Unknown HPI HPI Comments History of Present Illness Details Saul is a pleasant male. He is a resident of [facility]. 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 In addition has Parkinson's Current therapy includes finasteride with terazosin High risk for recurrent UTI Suprapubic tube 02/03 Discussed with ex who is his healthcare proxy - [phone] [facility] Medical History GEORGE (acute kidney injury) Urine retention BPH (benign prostatic hyperplasia) Anemia Constipation CVA (cerebral vascular accident) Skin cancer (melanoma) Parkinson's disease Essential tremor Obstructive sleep apnea Seizures Hyperlipidemia HTN (hypertension) Diabetes Surgical History H/O brain surgery Family History Father Cancer Father Cancer Brother Heart attack Social History Alcohol intake: former Year quit: soci Patient Tobacco Use Status: Never used Tobacco Review of Systems Const Reports as per HPI and Reports no additional complaints Card Reports as per HPI and Reports no additional complaints Resp Reports as per HPI and Reports no additional complaints GI Reports as per HPI and Reports no additional complaints Reports as per HPI Musc Reports no additional complaints and Reports as per HPI Neuro Reports no additional complaints and Reports as per HPI Physical Exam Const General: cooperative, healthy appearing, comfortable and no acute distress Orientation/consciousness: patient oriented x3 HEENT Face and sinus: Yes normal facial exam Mouth: moist mucous membranes Neck Neck: Yes normal visual inspection, Yes full ROM and Yes trachea midline Chest Chest palpation & inspection: normal inspection of the chest Resp Effort & Inspection: normal respiratory effort, able to speak in complete sentences and no respiratory distress GI Inspection: Yes normal to inspection Back/Spine/Pelvis Cervical Spine: normal cervical lordosis Thoracic/Lumbar Spine: thoracic and lumbar spine normal to inspection Skin General skin exam: no rashes or lesions noted Neuro General: patient oriented x3, tone normal and moves all extremities Extrem General: Yes normal to inspection and Yes capillary refill normal Assessment & Plan Assessment & Plan (1) Neurogenic urinary bladder disorder: Code(s): N31.9 - Neuromuscular dysfunction of bladder, unspecified Plan 6m f/u Patient Instructions: Imaging studies, laboratory and physical exam results were discussed and reviewed in detail. No major barriers to patient understanding were identified. An opportunity to ask questions regarding the treatment plan was provided. All questions were answered. The patient expressed understanding and agreement with the above treatment plan. The patient is aware they should contact our office by phone for worsening of their current condition or the appearance of new urologic symptoms. Compliance is encouraged with any medications and followup testing that is ordered. It is a privilege to participate in the urologic care of your patient. If you have any questions or concerns regarding treatment for the above conditions, or other urologic issues, please do not hesitate to contact me. The office telephone contact is [phone]. This note is constructed using voice recognition software. While every effort has been made to ensure accuracy clinical neuropsychologist errors may have been included. Yours sincerely, Dr Uday Daniels MD, ARNAV [facility] - Urology Providers of Expert, Compassionate Care for the Genitourinary System Coding Level of Care Code 47345-Sxre Fac sub, mod Diagnoses Neurogenic urinary bladder disorder N31.9
== END 2023-03-23 16:00 | disposition home or self-care (01) ==
LOC: HO.HUSV 13:19
PROVIDERS: Visit Provider Urology
DX: N31.9 Neuromuscular dysfunction of bladder, unspecified (principal)
CPT/HCPCS: 99309

== ENCOUNTER 2023-05-11 05:05 | Outpatient (REF) | payer MEDICARE, SELFPAY ==
[2023-05-11 05:52] LABS: Hematocrit 38.8 % (42.0-52.0); Hemoglobin 13.5 g/dl (14.0-18.0); Mean Corpuscular HGB Conc 34.8 g/dl (31.0-36.0); Mean Corpuscular Hemoglobin 31.7 pg (27.0-33.0); Mean Corpuscular Volume 91.1 fL (80.0-98.0); Mean Platelet Volume 10.6 fL (9.4-12.4); Platelet Count 168 X10*3/uL (160-400); Red Blood Count 4.26 X10*6/uL (4.60-5.80); Red Cell Distribution Width 13.3 % (11.0-16.0); White Blood Count 8.3 X10*3/uL (4.8-10.8)
[2023-05-11 06:06] LABS: Creatinine Urine 40.14 mg/dL; Microalbum/Creatinine Ratio Ur 29.8 ug/mg cr (<30)
[2023-05-11 06:12] LABS: Alanine Aminotransferase 8 U/L (0-40); Albumin Level 3.3 g/dL (3.5-5.0); Alkaline Phosphatase 81 U/L (39-117); Anion Gap 13 (12-20); Aspartate Amino Transferase 20 U/L (5-37); Bilirubin Total 0.4 mg/dL (0.0-1.0); Blood Urea Nitrogen 15 mg/dL (9-16); Calcium 8.4 mg/dL (8.4-10.2); Carbon Dioxide 25 mmol/L (22-29); Chloride 102 mmol/L (96-108); Estimated Glomerular Filt Rate > 60; Glucose Fasting 151 mg/dL (60-99); Potassium 3.7 mmol/L (3.3-5.1); Sodium 136 mmol/L (135-145); Total Protein 5.9 g/dL (6.5-8.0)
[2023-05-11 06:45] LABS: Folate 14.6 ng/mL (> or = 4.0); Vitamin B12 593 pg/mL (200-900)
[2023-05-11 07:28] LABS: Estimated Average Glucose 157 mg/dL; Hemoglobin A1c % 7.1 % (<6.0)
== END 2023-05-11 05:06 | disposition home or self-care (01) ==
LOC: HO.HSH2E 05:05
PROVIDERS: Visit Provider Internal Medicine Medical Oncology
DX: Z12.5 Encounter for screening for malignant neoplasm of prostate (principal); E11.9 Type 2 diabetes mellitus without complications; N17.9 Acute kidney failure, unspecified; G20.A1 Parkinson's disease without dyskinesia, without mention of fluctuations
CPT/HCPCS: 36415; 80053; 82043; 82570; 82607; 82746; 83036; 84153; 85027

== ENCOUNTER 2023-08-03 13:37 | Outpatient (AMB) | payer MEDICARE, SELFPAY ==
--- NOTE | 2023-08-03 13:45 | MHC.OFFVIS ---
Vital Signs 08/03/23 13:47 Height 5 ft 8 in BP 126/62 Blood Pressure Location Lt brachial Position Sitting Respiration 17 Pulse 70 Pulse Source Pulse Oximeter Pulse Oximetry (%) 96 Oxygen Delivery Method Room Air Intake Visit Reasons: follow up - Confirmed Intake Note: Pt presents to the office for a follow up for Parkinson's. Glass Cleaner Required: No Allergies lisinopril Allergy (Verified 08/03/23 13:45) Unknown phenytoin [From Dilantin] Allergy (Verified 08/03/23 13:45) Unknown Medication List - Last Reconciled 08/03/23 by Vicky Pearson MD amlodipine 5 mg PO DAILY aspirin (Adult Low Dose Aspirin) 81 mg PO DAILY carbidopa-levodopa 25-100 mg 2 tabs PO QID cholecalciferol (vitamin D3) (Vitamin D3) 25 mcg PO DAILY finasteride 5 mg PO DAILY fludrocortisone 0.05 mg PO DAILY folic acid 1 mg PO DAILY levetiracetam 750 mg PO BID metoprolol tartrate 12.5 mg PO BID primidone 250 mg PO BID rosuvastatin (Crestor) 40 mg PO DAILY sertraline 25 mg PO DAILY terazosin 2 mg PO BEDTIME HPI Comments Details: 83-year-old male with history of essential tremors, Parkinson's disease(RICK positive )and obstructive sleep apnea not on CPAP and seizures comes for follow up after 18 months . He was admitte [facility] Mar 2022 with left [place] stroke with residual left sided weakness . His last seizure was in 2008 He is in a [place] home now. he is shuffling- he denies falls , he uses a walker now [facility] Medical History GEORGE (acute kidney injury) Urine retention BPH (benign prostatic hyperplasia) Anemia Constipation CVA (cerebral vascular accident) Skin cancer (melanoma) Parkinson's disease Essential tremor Obstructive sleep apnea Seizures Hyperlipidemia HTN (hypertension) Diabetes Surgical History H/O brain surgery Family History Father Cancer Father Cancer Brother Heart attack Social History Alcohol intake: former Year quit: soci Patient Tobacco Use Status: Never used Tobacco Physical Exam Vital Signs: Last Vital Signs Pulse 70 08/03/23 13:47 Resp 17 08/03/23 13:47 BP 126/62 08/03/23 13:47 Pulse Ox 96 08/03/23 13:47 Oxygen Delivery Method Room Air 08/03/23 13:47 Const Other: Follows all commands Mild decreased facial expression and blink General: cooperative Nutritional Appearance: overweight Neuro Other: NOHead tremors Left UE rest tremors Speech hypophonia. fine finger movements decreased bilaterally foot times decreased bilaterally mild cogwheel rigidity He was in wheel chair today Gait was not evaluated Assessment & Plan Assessment & Plan (1) Parkinson's disease: Code(s): G20 - Parkinson's disease Category: Medical (2) Essential tremor: Code(s): G25.0 - Essential tremor Category: Medical (3) Obstructive sleep apnea: Code(s): G47.33 - Obstructive sleep apnea (adult) (pediatric) Category: Medical (4) Seizures: Code(s): R56.9 - Unspecified convulsions Category: Medical Plan Continue carbidopa levodopa 25/100 2 tablets 4 times a day. Continue Primidone 250mg bid Keppra 750 mg b.i.d. Start PT for gait Coding Level of Care Code Est Pt Level 4 (31585) Diagnoses Parkinson's disease G20 Essential tremor G25.0 Obstructive sleep apnea G47.33 Seizures R56.9
[2023-08-03 13:47] VITALS: BP 126/62; PULSE 70; RESP 17; O2SAT 96
== END 2023-08-03 14:34 | disposition home or self-care (01) ==
LOC: HO.HSMS 13:44
PROVIDERS: Visit Provider Psychiatry & Neurology Neurology
DX: G20.A1 Parkinson's disease without dyskinesia, without mention of fluctuations (principal); G47.33 Obstructive sleep apnea (adult) (pediatric)
CPT/HCPCS: 99214

== ENCOUNTER → 2023-08-03 13:44 | Outpatient (BNVA) | payer MEDICARE, SELFPAY | PROVIDERS: Visit Provider Psychiatry & Neurology Neurology | DX: G20.A1 Parkinson's disease without dyskinesia, without mention of fluctuations (principal); G47.33 Obstructive sleep apnea (adult) (pediatric); G25.0 Essential tremor; R56.9 Unspecified convulsions | CPT/HCPCS: 99212 ==

== ENCOUNTER 2023-08-12 05:26 | Outpatient (REF) | payer MEDICARE, SELFPAY ==
[2023-08-12 06:09] LABS: MANUAL DIFF FLAG NO
[2023-08-12 06:18] LABS: Basophils Absolute Auto 0.1 X10*3/uL (0.0-0.2); Basophils Percent Auto 0.8 % (0-2); Eosinophils Absolute Auto 0.3 X10*3/uL (0.0-0.4); Eosinophils Percent Auto 4.3 % (0-4); Hematocrit 38.8 % (42.0-52.0); Hemoglobin 13.8 g/dl (14.0-18.0); Imm Gran Abs Auto 0.02 X10*3/uL (0.00-0.03); Imm Gran Pct Auto 0.3 % (0.0-0.4); Lymphocytes Absolute Auto 2.1 X10*3/uL (1.2-4.9); Mean Corpuscular HGB Conc 35.6 g/dl (31.0-36.0); Mean Corpuscular Hemoglobin 33.1 pg (27.0-33.0); Mean Platelet Volume 10.6 fL (9.4-12.4); Monocytes Absolute Auto 0.8 X10*3/uL (0.1-1.2); Monocytes Percent Auto 9.6 % (2-11); Neutrophils Absolute Auto 4.6 x10*3/uL (2.0-8.3); Platelet Count 181 X10*3/uL (160-400); Red Blood Count 4.17 X10*6/uL (4.60-5.80); Red Cell Distribution Width 13.1 % (11.0-16.0); White Blood Count 7.9 X10*3/uL (4.8-10.8)
[2023-08-12 06:31] LABS: Alanine Aminotransferase 9 U/L (0-40); Albumin Level 3.5 g/dL (3.5-5.0); Alkaline Phosphatase 73 U/L (39-117); Anion Gap 11 (12-20); Aspartate Amino Transferase 19 U/L (5-37); Bilirubin Total 0.4 mg/dL (0.0-1.0); Blood Urea Nitrogen 18 mg/dL (9-16); Calcium 8.8 mg/dL (8.4-10.2); Carbon Dioxide 27 mmol/L (22-29); Chloride 102 mmol/L (96-108); Cholesterol 124 mg/dL (<200); Estimated Glomerular Filt Rate > 60; Glucose Fasting 180 mg/dL (60-99); HDL Cholesterol 45 mg/dL (>40); LDL Cholesterol Calculated 62 mg/dL (<100); Potassium 3.7 mmol/L (3.3-5.1); Sodium 136 mmol/L (135-145); Total Protein 6.1 g/dL (6.5-8.0); Triglycerides 89 mg/dL (<150)
[2023-08-12 06:37] LABS: B Type Natriuretic Peptide 90 pg/mL (<100)
[2023-08-12 06:58] LABS: Creatinine Urine 137.56 mg/dL
[2023-08-12 07:20] LABS: Estimated Average Glucose 183 mg/dL
== END 2023-08-12 05:27 | disposition home or self-care (01) ==
LOC: HO.HSH2E 05:26
PROVIDERS: Visit Provider Internal Medicine Medical Oncology
DX: Z13.6 Encounter for screening for cardiovascular disorders (principal); G20.A1 Parkinson's disease without dyskinesia, without mention of fluctuations; R60.0 Localized edema
CPT/HCPCS: 36415; 80053; 80061; 82043; 82570; 83036; 83880; 85025

== ENCOUNTER 2023-08-24 11:56 | Outpatient (AMB) | payer MEDICARE, SELFPAY ==
--- NOTE | 2023-08-24 12:00 | HO.VETSHOME ---
Intake Intake Visit Reasons: 6M ST tube placement Allergies lisinopril Allergy (Verified 08/24/23 23:42) Unknown phenytoin [From Dilantin] Allergy (Verified 08/24/23 23:42) Unknown Medication List - Last Reconciled 08/24/23 by MAXIMILIANO May amlodipine 5 mg PO DAILY aspirin (Adult Low Dose Aspirin) 81 mg PO DAILY carbidopa-levodopa 25-100 mg 2 tabs PO QID cholecalciferol (vitamin D3) (Vitamin D3) 25 mcg PO DAILY finasteride 5 mg PO DAILY fludrocortisone 0.05 mg PO DAILY folic acid 1 mg PO DAILY levetiracetam 750 mg PO BID metoprolol tartrate 12.5 mg PO BID primidone 250 mg PO BID rosuvastatin (Crestor) 40 mg PO DAILY sertraline 25 mg PO DAILY terazosin 2 mg PO BEDTIME HPI HPI Comments History of Present Illness Details Saul is a pleasant 83 year old male patient who is a resident of [facility]. He has a past medical history of urinary retention, BPH, anemia, constipation, CVA, skin cancer, Parkinson's disease, essential tremor, obstructive sleep apnea, seizures, hyperlipidemia, hypertension, and diabetes. He is accompanied by his ex- during today's visit. He is being followed up on today for his neurogenic bladder recurrent urinary tract infections. In assessment of the patient today SPT site with small area of hypergranulated tissue noted to the bottom of the SPT area otherwise no drainage and or reddness noted. Suprapubic tube draining clear yellow urine. Patient is a poor historian however when asked he denies any bothersome urinary issues or concerns. Ex- at bedside and offers no urinary issues or concerns at this time. In review of patient's MAR it appears he is complaint with urological medications. Nursing offers no issues at this time. 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 In addition has Parkinson's Current therapy includes finasteride with terazosin High risk for recurrent UTI Suprapubic tube 02/03 [facility] Medical History GEORGE (acute kidney injury) Urine retention BPH (benign prostatic hyperplasia) Anemia Constipation CVA (cerebral vascular accident) Skin cancer (melanoma) Parkinson's disease Essential tremor Obstructive sleep apnea Seizures Hyperlipidemia HTN (hypertension) Diabetes Surgical History H/O brain surgery Family History Father Cancer Father Cancer Brother Heart attack Social History Alcohol intake: former Year quit: soci Patient Tobacco Use Status: Never used Tobacco Review of Systems Const Unobtainable due to mental status Physical Exam Const General: cooperative, comfortable, no acute distress, well developed and tired appearing Orientation/consciousness: oriented to person Limitations: other limitations (in bed) HEENT Head: Yes normal to inspection Neck Neck: Yes normal visual inspection Chest Chest palpation & inspection: normal inspection of the chest Resp Effort & Inspection: normal respiratory effort and able to speak in complete sentences Cardio Rate: regular rate Other: PER HPI Neuro General: oriented to person Extrem General: Yes normal to inspection Psych Appearance: well kempt Speech and movement: Clear speech present Attitude: cooperative Insight: Limited insight present (Psych) Judgement: Limited judgement present (Psych) Assessment & Plan Assessment & Plan (1) Neurogenic urinary bladder disorder: Code(s): N31.9 - Neuromuscular dysfunction of bladder, unspecified Plan Continue to change suprapubic tube as ordered. No urological issues or concerns at this time. Start hydrocortisone cream 1% daily times 14 days. Continue urological medications; terazosin and finasteride. Follow-up in 6 months; if not sooner with any issues, concerns, and or questions. Patient Instructions: The patient had an opportunity to ask questions regarding the treatment plan. All questions were answered. Physical exam, labs, and imaging were discussed and reviewed in detail. As well as risks, benefits, and discussion of treatment choices. No major barriers to understanding were identified. The patient expressed understanding and agreement with the above treatment plan. The patient was made aware they should contact our office by phone for worsening of their current condition, the appearance of new symptoms, or with any questions or concerns. Compliance is encouraged with any medications and follow up testing that is ordered. It is a privilege to be allowed the opportunity to participate in? your urological care.? Again, if you have any questions or concerns If you have any questions or concerns please do not hesitate to contact me. The office is [phone]. This note is constructed using voice recognition software. While every effort has been made to ensure accuracy musical instrument maker errors may have been included. Yours sincerely, MAXIMILIANO May Coding Level of Care Code 40127-Ofih Fac sub, low Diagnoses Neurogenic urinary bladder disorder N31.9 Time Spent (min) 20
== END 2023-08-24 16:30 | disposition home or self-care (01) ==
LOC: HO.HUSV 11:56
PROVIDERS: Visit Provider Nurse Practitioner Family
DX: N31.9 Neuromuscular dysfunction of bladder, unspecified (principal)
CPT/HCPCS: 99308

== ENCOUNTER 2023-11-15 06:40 | Outpatient (REF) | payer MEDICARE, SELFPAY ==
[2023-11-15 07:36] LABS: Estimated Average Glucose 174 mg/dL; Hemoglobin A1c % 7.7 % (<6.0)
== END 2023-11-15 06:41 | disposition home or self-care (01) ==
LOC: HO.HSH2E 06:40
PROVIDERS: Visit Provider Internal Medicine Endocrinology, Diabetes & Metabolism
DX: E11.9 Type 2 diabetes mellitus without complications (principal)
CPT/HCPCS: 36415; 83036

== ENCOUNTER 2023-11-23 15:35 | Outpatient (AMB) | payer MEDICARE, SELFPAY ==
--- NOTE | 2023-11-23 15:35 | A.OFFVIS_ITS ---
Intake Intake Visit Reasons: Hematuria (urology) Intake Note: [facility] Patient is Present for Hematuria Urology Medication: Terazosin Antibiotic Allergy: None Blood Thinner: Aspirin Extension Work Instructor Required: No Allergies lisinopril Allergy (Verified 11/23/23 16:55) Unknown phenytoin [From Dilantin] Allergy (Verified 11/23/23 16:55) Unknown Medication List - Last Reconciled 11/23/23 by MAXIMILIANO May amlodipine 5 mg PO DAILY aspirin (Adult Low Dose Aspirin) 81 mg PO DAILY carbidopa-levodopa 25-100 mg 2 tabs PO QID cholecalciferol (vitamin D3) (Vitamin D3) 25 mcg PO DAILY finasteride 5 mg PO DAILY fludrocortisone 0.05 mg PO DAILY folic acid 1 mg PO DAILY levetiracetam 750 mg PO BID metoprolol tartrate 12.5 mg PO BID primidone 250 mg PO BID rosuvastatin (Crestor) 40 mg PO DAILY sertraline 25 mg PO DAILY terazosin 2 mg PO BEDTIME HPI HPI Comments History of Present Illness Details Saul is a pleasant 83 year old male patient who is a resident of [facility]. He has a past medical history of urinary retention, BPH, anemia, constipation, CVA, skin cancer, Parkinson's disease, essential tremor, obstructive sleep apnea, seizures, hyperlipidemia, hypertension, and diabetes. He is accompanied by his ex- during today's visit. He is being followed up on today for question of gross hematuria. In assessment of the patient today suprapubic tube site appears clean dry and intact and catheter is draining clear yellow urine however urine in Michele drainage bag does appear dark brown. Upon irrigation of Michele catheter no hematuria noted. Clear yellow urine irrigated. No pain or issues noted when irrigating Michele catheter. Patient is a poor historian however when asked he denies any bothersome urinary issues or concerns. Ex- at bedside and offers no urinary issues or concerns at this time. In review of patient's MAR it appears he is complaint with urological medications. 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 In addition has Parkinson's Current therapy includes finasteride with terazosin High risk for recurrent UTI Suprapubic tube 02/03 [facility] Medical History GEORGE (acute kidney injury) Urine retention BPH (benign prostatic hyperplasia) Anemia Constipation CVA (cerebral vascular accident) Skin cancer (melanoma) Parkinson's disease Essential tremor Obstructive sleep apnea Seizures Hyperlipidemia HTN (hypertension) Diabetes Surgical History H/O brain surgery Family History Father Cancer Father Cancer Brother Heart attack Social History Alcohol intake: former Year quit: soci Patient Tobacco Use Status: Never used Tobacco Review of Systems Const Unobtainable due to mental status Physical Exam Const General: cooperative, comfortable, no acute distress, well developed and tired appearing Orientation/consciousness: oriented to person Limitations: other limitations (in bed) HEENT Head: Yes normal to inspection Neck Neck: Yes normal visual inspection Chest Chest palpation & inspection: normal inspection of the chest Resp Effort & Inspection: normal respiratory effort and able to speak in complete sentences Cardio Rate: regular rate Other: PER HPI Neuro General: oriented to person Extrem General: Yes normal to inspection Psych Appearance: well kempt Speech and movement: Clear speech present Attitude: cooperative Insight: Limited insight present (Psych) Judgement: Limited judgement present (Psych) Office Procedures Bladder/Catheter Procedure Details: Suprapubic tube was irrigated with 120 mL of normal saline. No hematuria was noted. Clear yellow urine. Patient tolerated procedure well. [id number]-[id number] of Bladder Procedure code (CPT) selection complete Assessment & Plan Assessment & Plan (1) Neurogenic urinary bladder disorder: Code(s): N31.9 - Neuromuscular dysfunction of bladder, unspecified Plan Continue to change suprapubic tube as ordered. Michele catheter irrigated at bedside with no pain or hematuria noted. Discussed, educated, and stressed the importance of adequate hydration. Suprapubic site appears dry clean and intact. Continue urological medications; terazosin and finasteride. Follow-up in 6 months; if not sooner with any issues, concerns, and or questions. Patient Instructions: The patient had an opportunity to ask questions regarding the treatment plan. All questions were answered. Physical exam, labs, and imaging were discussed and reviewed in detail. As well as risks, benefits, and discussion of treatment choices. No major barriers to understanding were identified. The patient expressed understanding and agreement with the above treatment plan. The patient was made aware they should contact our office by phone for worsening of their current condition, the appearance of new symptoms, or with any questions or concerns. Compliance is encouraged with any medications and follow up testing that is ordered. It is a privilege to be allowed the opportunity to participate in? your urological care.? Again, if you have any questions or concerns If you have any questions or concerns please do not hesitate to contact me. The office is [phone]. This note is constructed using voice recognition software. While every effort has been made to ensure accuracy package checker errors may have been included. Yours sincerely, MAXIMILIANO May Coding Level of Care Code 05919-Nvby Fac sub, low Diagnoses Neurogenic urinary bladder disorder N31.9 CPT Codes Bladder/Catheter Procedure - CPT: 05386-Asbusgpowt of Bladder ([id number]) Time Spent (min) 20
== END 2023-11-23 16:55 | disposition home or self-care (01) ==
LOC: HO.HUSV 15:35
PROVIDERS: Visit Provider Nurse Practitioner Family
DX: N31.9 Neuromuscular dysfunction of bladder, unspecified (principal)
CPT/HCPCS: 51700; 99308

== ENCOUNTER 2023-12-14 06:00 | Outpatient (REF) | payer MEDICARE, SELFPAY ==
[2023-12-14 06:04] LABS: MANUAL DIFF FLAG NO
[2023-12-14 06:36] LABS: Basophils Absolute Auto 0.1 X10*3/uL (0.0-0.2); Basophils Percent Auto 0.7 % (0-2); Eosinophils Absolute Auto 0.4 X10*3/uL (0.0-0.4); Eosinophils Percent Auto 3.9 % (0-4); Hematocrit 42.7 % (42.0-52.0); Hemoglobin 14.8 g/dl (14.0-18.0); Imm Gran Abs Auto 0.03 X10*3/uL (0.00-0.03); Imm Gran Pct Auto 0.3 % (0.0-0.4); Lymphocytes Absolute Auto 2.2 X10*3/uL (1.2-4.9); Lymphocytes Percent Auto 24.5 % (20-40); Mean Corpuscular HGB Conc 34.7 g/dl (31.0-36.0); Mean Corpuscular Hemoglobin 32.5 pg (27.0-33.0); Mean Corpuscular Volume 93.8 fL (80.0-98.0); Mean Platelet Volume 10.8 fL (9.4-12.4); Monocytes Absolute Auto 0.8 X10*3/uL (0.1-1.2); Monocytes Percent Auto 9.2 % (2-11); Neutrophils Absolute Auto 5.4 x10*3/uL (2.0-8.3); Neutrophils Percent Auto 61.4 % (45-73); Platelet Count 199 X10*3/uL (160-400); Red Blood Count 4.55 X10*6/uL (4.60-5.80); Red Cell Distribution Width 12.9 % (11.0-16.0); White Blood Count 8.9 X10*3/uL (4.8-10.8)
[2023-12-14 06:48] LABS: Alanine Aminotransferase 7 U/L (0-40); Albumin Level 3.9 g/dL (3.5-5.0); Alkaline Phosphatase 85 U/L (39-117); Anion Gap 15 (12-20); Aspartate Amino Transferase 20 U/L (5-37); Bilirubin Total 0.3 mg/dL (0.0-1.0); Blood Urea Nitrogen 13 mg/dL (9-16); Calcium 9.3 mg/dL (8.4-10.2); Carbon Dioxide 27 mmol/L (22-29); Chloride 102 mmol/L (96-108); Estimated Glomerular Filt Rate > 60; Glucose Random 121 mg/dL (60-115); Potassium 3.5 mmol/L (3.3-5.1); Sodium 140 mmol/L (135-145); Total Protein 6.8 g/dL (6.5-8.0)
[2023-12-14 07:13] LABS: Estimated Average Glucose 154 mg/dL; Hemoglobin A1C 191.6026 umol/L; Total Hemoglobin (HGBA1C) 3608.5015 umol/L
== END 2023-12-14 06:01 | disposition home or self-care (01) ==
LOC: HO.HSH2E 06:00
PROVIDERS: Visit Provider Internal Medicine Endocrinology, Diabetes & Metabolism
DX: E11.9 Type 2 diabetes mellitus without complications (principal); D64.9 Anemia, unspecified
CPT/HCPCS: 36415; 80053; 83036; 85025

== ENCOUNTER 2023-12-16 22:09 | Outpatient (REF) | payer MEDICARE, SELFPAY ==
[2023-12-16 22:26] LABS: Appearance Urine Cloudy; Color Urine Yellow; Glucose Urine UA Negative (Negative); Leukocyte Esterase Urine Moderate (2+) (Negative); Nitrite Urine Negative (Negative); PH 5.5 (5.0-9.0); Specific Gravity - Urine 1.025 (1.005-1.025); UMIC TRIGGER UA YES; Urine Blood Large (3+) (Negative); Urine Ketones Trace mg/dL (Negative); Urine Protein 30 (1+) mg/dL (Neg-Trace)
[2023-12-16 22:42] LABS: Bacteria Urine None Seen (None Seen); Squamous Epithelial Cell Urine 0-2 /HPF (0-2); WBC Urine >50 /HPF (0-5)
== END 2023-12-16 22:10 | disposition home or self-care (01) ==
LOC: HO.LAB 22:09
PROVIDERS: Visit Provider Internal Medicine Endocrinology, Diabetes & Metabolism
DX: R53.83 Other fatigue (principal); R41.82 Altered mental status, unspecified
CPT/HCPCS: 81001

== ENCOUNTER 2023-12-20 05:51 | Outpatient (REF) | payer MEDICARE, SELFPAY ==
[2023-12-20 06:03] LABS: MANUAL DIFF FLAG NO
[2023-12-20 06:25] LABS: Basophils Absolute Auto 0.1 X10*3/uL (0.0-0.2); Basophils Percent Auto 0.8 % (0-2); Eosinophils Absolute Auto 0.3 X10*3/uL (0.0-0.4); Eosinophils Percent Auto 4.1 % (0-4); Hematocrit 39.8 % (42.0-52.0); Hemoglobin 13.9 g/dl (14.0-18.0); Imm Gran Abs Auto 0.01 X10*3/uL (0.00-0.03); Imm Gran Pct Auto 0.1 % (0.0-0.4); Lymphocytes Absolute Auto 1.8 X10*3/uL (1.2-4.9); Lymphocytes Percent Auto 23.8 % (20-40); Mean Corpuscular HGB Conc 34.9 g/dl (31.0-36.0); Mean Corpuscular Hemoglobin 32.6 pg (27.0-33.0); Mean Corpuscular Volume 93.4 fL (80.0-98.0); Mean Platelet Volume 10.5 fL (9.4-12.4); Monocytes Absolute Auto 0.8 X10*3/uL (0.1-1.2); Monocytes Percent Auto 10.7 % (2-11); Neutrophils Absolute Auto 4.6 x10*3/uL (2.0-8.3); Neutrophils Percent Auto 60.5 % (45-73); Platelet Count 187 X10*3/uL (160-400); Red Blood Count 4.26 X10*6/uL (4.60-5.80); Red Cell Distribution Width 13.2 % (11.0-16.0); White Blood Count 7.6 X10*3/uL (4.8-10.8)
== END 2023-12-20 05:52 | disposition home or self-care (01) ==
LOC: HO.HSH2E 05:51
PROVIDERS: Visit Provider Internal Medicine
DX: E11.9 Type 2 diabetes mellitus without complications (principal); R53.83 Other fatigue
CPT/HCPCS: 36415; 85025

== ENCOUNTER 2023-12-27 05:58 | Outpatient (REF) | payer MEDICARE, SELFPAY ==
[2023-12-27 06:05] LABS: MANUAL DIFF FLAG NO
[2023-12-27 06:25] LABS: Anion Gap 12 (12-20); Blood Urea Nitrogen 14 mg/dL (9-16); Calcium 8.8 mg/dL (8.4-10.2); Carbon Dioxide 24 mmol/L (22-29); Chloride 105 mmol/L (96-108); Estimated Glomerular Filt Rate > 60; Glucose Fasting 170 mg/dL (60-99); Potassium 4.1 mmol/L (3.3-5.1); Sodium 137 mmol/L (135-145)
[2023-12-27 06:29] LABS: Basophils Absolute Auto 0.1 X10*3/uL (0.0-0.2); Basophils Percent Auto 0.9 % (0-2); Eosinophils Absolute Auto 0.4 X10*3/uL (0.0-0.4); Eosinophils Percent Auto 4.6 % (0-4); Hematocrit 39.5 % (42.0-52.0); Hemoglobin 13.4 g/dl (14.0-18.0); Imm Gran Abs Auto 0.02 X10*3/uL (0.00-0.03); Imm Gran Pct Auto 0.3 % (0.0-0.4); Lymphocytes Absolute Auto 1.9 X10*3/uL (1.2-4.9); Lymphocytes Percent Auto 23.4 % (20-40); Mean Corpuscular HGB Conc 33.9 g/dl (31.0-36.0); Mean Corpuscular Hemoglobin 32.1 pg (27.0-33.0); Mean Corpuscular Volume 94.5 fL (80.0-98.0); Mean Platelet Volume 10.6 fL (9.4-12.4); Monocytes Absolute Auto 0.7 X10*3/uL (0.1-1.2); Monocytes Percent Auto 8.2 % (2-11); Neutrophils Percent Auto 62.6 % (45-73); Platelet Count 176 X10*3/uL (160-400); Red Blood Count 4.18 X10*6/uL (4.60-5.80); Red Cell Distribution Width 13.7 % (11.0-16.0)
== END 2023-12-27 05:59 | disposition home or self-care (01) ==
LOC: HO.HSH2E 05:58
PROVIDERS: Visit Provider Nurse Practitioner
DX: E11.9 Type 2 diabetes mellitus without complications (principal)
CPT/HCPCS: 36415; 80048; 85025

== ENCOUNTER 2024-01-25 06:05 | Outpatient (REF) | payer MEDICARE, SELFPAY ==
[2024-01-25 06:25] LABS: Anion Gap 14 (12-20); Blood Urea Nitrogen 13 mg/dL (9-16); Carbon Dioxide 24 mmol/L (22-29); Chloride 102 mmol/L (96-108); Estimated Glomerular Filt Rate > 60; Glucose Random 151 mg/dL (60-115); Potassium 3.3 mmol/L (3.3-5.1); Sodium 137 mmol/L (135-145)
== END 2024-01-25 06:06 | disposition home or self-care (01) ==
LOC: HO.HSH2E 06:05
PROVIDERS: Visit Provider Internal Medicine Endocrinology, Diabetes & Metabolism
DX: I10 Essential (primary) hypertension (principal)
CPT/HCPCS: 36415; 80048

== ENCOUNTER 2024-02-15 13:13 | Outpatient (AMB) | payer MEDICARE, SELFPAY ==
--- NOTE | 2024-02-15 13:14 | A.OFFVIS_ITS ---
Vital Signs 02/15/24 13:14 Height 5 ft 8 in Intake Visit Reasons: follow up Intake Note: Patient presents for follow up Allergies lisinopril Allergy (Verified 02/15/24 13:15) Unknown phenytoin [From Dilantin] Allergy (Verified 02/15/24 13:15) Unknown HPI Comments Details: 84-year-old male with history of essential tremors, Parkinson's disease(RICK positive )and obstructive sleep apnea not on CPAP and seizures comes for follow up after . His last seizure was in 2008 He is in a [place] home now. he uses a walker and rarely walks [facility] Medical History GEORGE (acute kidney injury) Urine retention BPH (benign prostatic hyperplasia) Anemia Constipation CVA (cerebral vascular accident) Skin cancer (melanoma) Parkinson's disease Essential tremor Obstructive sleep apnea Seizures Hyperlipidemia HTN (hypertension) Diabetes Surgical History H/O brain surgery Family History Father Cancer Father Cancer Brother Heart attack Social History Alcohol intake: former Year quit: soci Patient Tobacco Use Status: Never used Tobacco Physical Exam Const Other: Follows all commands Mild decreased facial expression and blink General: cooperative Nutritional Appearance: overweight Neuro Other: NOHead tremors Left UE rest tremors Speech hypophonia. fine finger movements decreased bilaterally foot times decreased bilaterally mild cogwheel rigidity He was in wheel chair today Gait was not evaluated Assessment & Plan Assessment & Plan (1) Parkinson's disease: Code(s): G20 - Parkinson's disease Category: Medical Qualifiers: Dyskinesia presence: without dyskinesia Fluctuating manifestations: without fluctuating manifestations Qualified Code(s): G20.A1 - Parkinson's disease without dyskinesia, without mention of fluctuations (2) Essential tremor: Code(s): G25.0 - Essential tremor Category: Medical (3) Obstructive sleep apnea: Code(s): G47.33 - Obstructive sleep apnea (adult) (pediatric) Category: Medical (4) Seizures: Code(s): R56.9 - Unspecified convulsions Category: Medical Plan Continue carbidopa levodopa 25/100 2 tablets 4 times a day. Continue Primidone 250mg bid Keppra 750 mg b.i.d. Start PT for gait Coding Level of Care Code Est Pt Level 4 (57948) Diagnoses Parkinson's disease without dyskinesia or fluctuating manifestations G20.A1 Dyskinesia presence: without dyskinesia Fluctuating manifestations: without fluctuating manifestations Essential tremor G25.0 Obstructive sleep apnea G47.33 Seizures R56.9
== END 2024-02-15 13:31 | disposition home or self-care (01) ==
LOC: HO.HSMS 13:13
PROVIDERS: Visit Provider Psychiatry & Neurology Neurology
DX: G20.A1 Parkinson's disease without dyskinesia, without mention of fluctuations (principal); G25.0 Essential tremor; G47.33 Obstructive sleep apnea (adult) (pediatric); R56.9 Unspecified convulsions
CPT/HCPCS: 99214

== ENCOUNTER → 2024-02-15 13:13 | Outpatient (BNVA) | payer MEDICARE, SELFPAY | PROVIDERS: Visit Provider Psychiatry & Neurology Neurology | DX: G20.A1 Parkinson's disease without dyskinesia, without mention of fluctuations (principal); G47.33 Obstructive sleep apnea (adult) (pediatric); R56.9 Unspecified convulsions | CPT/HCPCS: 99212 ==

== ENCOUNTER 2024-03-05 06:25 | Outpatient (REF) | payer MEDICARE, SELFPAY ==
[2024-03-05 07:18] LABS: Estimated Average Glucose 163 mg/dL; Hemoglobin A1C 225.4514 umol/L; Hemoglobin A1c % 7.3 % (<6.0); Total Hemoglobin (HGBA1C) 3994.9612 umol/L
[2024-03-05 07:28] LABS: Glucose Fasting 158 mg/dL (60-99)
== END 2024-03-05 06:26 | disposition home or self-care (01) ==
LOC: HO.HSH2E 06:25
PROVIDERS: Visit Provider Internal Medicine Endocrinology, Diabetes & Metabolism
DX: E11.9 Type 2 diabetes mellitus without complications (principal)
CPT/HCPCS: 36415; 82947; 83036

== ENCOUNTER 2024-03-08 06:23 | Outpatient (REF) | payer MEDICARE, SELFPAY ==
[2024-03-08 07:32] LABS: Creatinine Urine 178.07 mg/dL; Total Protein Urine Random 83 mg/dL (<12)
== END 2024-03-08 06:24 | disposition home or self-care (01) ==
LOC: HO.HSH2E 06:23
PROVIDERS: Visit Provider Nurse Practitioner Acute Care
DX: N18.9 Chronic kidney disease, unspecified (principal)
CPT/HCPCS: 36415; 80048; 82570; 84156

== ENCOUNTER 2024-03-20 05:58 | Outpatient (REF) | payer MEDICARE, SELFPAY ==
[2024-03-20 06:20] LABS: Anion Gap 12 (12-20); Carbon Dioxide 25 mmol/L (22-29); Chloride 104 mmol/L (96-108); Potassium 3.8 mmol/L (3.3-5.1); Sodium 137 mmol/L (135-145)
== END 2024-03-20 05:59 | disposition home or self-care (01) ==
LOC: HO.MMNH2L 05:58
PROVIDERS: Visit Provider Internal Medicine Endocrinology, Diabetes & Metabolism
DX: E87.6 Hypokalemia (principal)
CPT/HCPCS: 36415; 80051

== ENCOUNTER 2024-04-11 12:45 | Emergency (ER) | payer MEDICARE, SELFPAY ==
[2024-04-11 13:16] VITALS: BP 142/86; PULSE 69; O2SAT 96
[2024-04-11 13:18] VITALS: BP 157/80; PULSE 60; RESP 20; TEMP 36.5; O2SAT 94; BMI 30.8
--- NOTE | 2024-04-11 13:55 | ED_ITS ---
HPI - General Adult General Chief complaint: General Medical Stated complaint: PAIN/?INF R FOOT PER EMS Time Seen by Provider: 04/11/24 13:13 Source: patient Mode of arrival: EMS History of Present Illness ED Provider: Deon VALENCIA narrative: 84-year-old male comes in with concerns for possible right toe infection Related Data Home Medications ?Medication ?Instructions ?Recorded ?Confirmed aspirin 81 mg tablet,delayed 81 mg PO DAILY 04/22/21 08/24/23 release (Adult Low Dose Aspirin) folic acid 1 mg tablet 1 mg PO DAILY 04/22/21 08/24/23 rosuvastatin 40 mg tablet (Crestor) 40 mg PO DAILY 04/22/21 08/24/23 terazosin 2 mg capsule 2 mg PO BEDTIME 11/01/22 08/24/23 cholecalciferol (vitamin D3) 25 25 mcg PO DAILY 12/31/22 08/24/23 mcg (1,000 unit) capsule (Vitamin D3) finasteride 5 mg tablet 5 mg PO DAILY 12/31/22 08/24/23 fludrocortisone 0.1 mg tablet 0.05 mg PO DAILY 12/31/22 08/24/23 levetiracetam 750 mg tablet 750 mg PO BID 12/31/22 08/24/23 metoprolol tartrate 25 mg tablet 12.5 mg PO BID 12/31/22 08/24/23 primidone 250 mg tablet 250 mg PO BID 12/31/22 08/24/23 sertraline 25 mg tablet 25 mg PO DAILY 12/31/22 08/24/23 amlodipine 5 mg tablet 5 mg PO DAILY 08/03/23 08/24/23 Previous Rx's ?Medication ?Instructions ?Recorded carbidopa 25 mg-levodopa 100 mg 2 tab PO QID #240 tabs 05/31/22 tablet Allergies Allergy/AdvReac Type Severity Reaction Status Date / Time lisinopril Allergy Unknown Verified 04/11/24 13:20 phenytoin [From Dilantin] Allergy Unknown Verified 04/11/24 13:20 Review of Systems Review of Systems: Limited history PMFSH Past Medical History Source: nursing notes reviewed Medical History GEORGE (acute kidney injury) Urine retention BPH (benign prostatic hyperplasia) Anemia Constipation CVA (cerebral vascular accident) Skin cancer (melanoma) Parkinson's disease Essential tremor Obstructive sleep apnea Seizures Hyperlipidemia HTN (hypertension) Diabetes Surgical History H/O brain surgery Family History Family History Father Cancer Father Cancer Brother Heart attack Social History Social History Alcohol intake: former Year quit: soci Patient Tobacco Use Status: Never used Tobacco Smoked in Last 30 Days: No Use of substances other than those prescribed or required for medical reasons: No Advance Directives: Yes Advance Directives on File: Yes Advance Directives Date on File: 01/04/23 Do you have a plan to hurt others: No Plan Physical Exam ED Vital Signs: Vital Signs - 24 hr 04/11/24 13:18 Temperature 97.7 F Pulse Rate 60 Respiratory Rate 20 Blood Pressure 157/80 H Pulse Oximetry 94 Oxygen Delivery Method Room Air BMI result Body Mass Index 30.8 VITAL SIGNS: Reviewed. GENERAL: Well developed, well nourished, in no acute distress. HEAD: Normocephalic/atraumatic EYES: PERRLA, EOMI LUNGS: Normal breath sounds. No adventitious sounds or accessory muscle use. CARDIOVASCULAR: Regular rate and rhythm without noted murmurs ABDOMEN: Soft, non-tender, non-distended with bowel sounds. MUSCULOSKELETAL: No tenderness, deformities, or effusions noted on gross inspection. EXTREMITIES: No cyanosis, clubbing or edema. RITGH FOOT: redness and swelling with imbedded lateral portion of the nail SKIN: Inspection of the skin reveals no rashes NEUROLOGIC: Alert and strength and sensation to light touch were grossly intact x 4. Medications Administered Discontinued Medications Generic Name Dose Route Start Last Admin Trade Name Freq PRN Reason Stop Dose Admin Lidocaine HCl 10 ml 04/11/24 14:01 04/11/24 14:14 Lidocaine Hcl 1 % Mpf 5 Ml Vial SUBCUT 04/11/24 14:02 10 ml ONCE ONE Administration Medical Decision Making Medical Decision Making MDM Narrative: 84-year-old male with ingrown toenail 6 mL of 1% lidocaine was used for digital block of the right great toe, prepped the area with Betadine, removed 25% of the lateral aspect of the toenail, patient tolerated the procedure well, there is hemostasis, will apply bacitracin as well as a dressing in instruct patient to follow-up with podiatry. I did inform him he may require complete nail removal similar to what is taking place on his left great toe. Patient does not meet inpatient level of care. Differential Diagnosis Differential Diagnoses: The differential diagnosis associated with the presentation includes See above Admission/Observation Consideration of admission/observation: Escalation of care including admission/observation considered See above Discharge Plan Discharge Clinical Impression: Ingrown right big toenail Patient Disposition: Home, Self-Care Instructions: Ingrown Nail (ED) Additional Instructions: You need to follow-up with podiatry for re-evaluation and possible complete nail removal similar to what is taking place on your left great toe. Recommend Tylenol/ibuprofen as needed for pain control. Recommend antibiotic ointment twice daily. Follow-up with your primary care doctor and do not hesitate to return to the emergency room for any acute worsening of your symptoms. Prescriptions: No Action carbidopa-levodopa 25-100 mg tablet 2 tab PO QID Qty: 240 3RF levetiracetam 750 mg Tablet 750 mg PO BID fludrocortisone 0.1 mg Tablet 0.05 mg PO DAILY finasteride 5 mg Tablet 5 mg PO DAILY cholecalciferol (vitamin D3) [Vitamin D3] 25 mcg (1,000 unit) Capsule 25 mcg PO DAILY metoprolol tartrate 25 mg Tablet 12.5 mg PO BID primidone 250 mg tablet 250 mg PO BID sertraline 25 mg Tablet 25 mg PO DAILY aspirin [Adult Low Dose Aspirin] 81 mg tablet,delayed release (DR/EC) 81 mg PO DAILY rosuvastatin [Crestor] 40 mg tablet 40 mg PO DAILY folic acid 1 mg tablet 1 mg PO DAILY terazosin 2 mg capsule 2 mg PO BEDTIME amlodipine 5 mg tablet 5 mg PO DAILY Referrals: Otoniel Nixon MD [Primary Care Provider] - Print Language: Macedonian
[2024-04-11] MEDS: Lidocaine HCl 1 % MPF 5 ML VIAL 10 ML SUBCUT (14:14)
[2024-04-11] MEDS: Bacitracin Oint 0.9 GM PACKET 1 APPL TOPICAL (15:09)
[2024-04-11 15:10] VITALS: BP 161/77; PULSE 63; RESP 20; TEMP 36.5; O2SAT 96
--- NOTE | 2024-04-11 15:28 | PC.NURSE ---
report given to [facility]
--- OUTSIDE RECORDS SUMMARY | 2024-04-11 15:45 | XMS_ITS | Clinical Summary ---
Author Organization [employer] Address [address] [facility] 7t [place] [address] Care Team Providers Care Senior Telecommunications Consultant Name Role Phone Unavailable Primary Care Provider Unavailabl e Allergies Active Allergy Reactions Criticality Noted Date Comments Lisinopril 06/21/2008 Other reaction(s): Hyperkalemia Phenytoin Dizziness Medium 03/08/2017 AKA Dilantin Medications amLODIPine (Norvasc) 5 MG tablet 5 mg. 3 Active aspirin 81 MG EC tablet 81 mg. 3 Active carbidopa-levodo pa (Sinemet) 25-100 MG tablet TAKE 2 TABLETS BY MOUTH FOUR TIMES A DAY DIRECTED BY PROVIDER 3 Active clopidogrel (Plavix) 75 MG tablet Take 75 mg by mouth in the morning. 3 Active finasteride (Proscar) 5 MG tablet Take 1 tablet by mouth in the morning. 3 Active fludrocortisone (Florinef) 0.1 MG tablet Take 0.5 tablets by mouth in the morning. 3 Active folic acid (Folvite) 1 MG tablet 1 mg. 2 Active levETIRAcetam (Keppra) 750 MG tablet Take 1 tablet by mouth every 12 (twelve) hours. 3 Active metoprolol tartrate (Lopressor) 25 MG tablet 12.5 mg. 3 Active rosuvastatin (Crestor) 40 MG tablet Take 1 tablet by mouth in the morning. 3 Active primidone (Mysoline) 250 MG tablet Take 1 tablet by mouth 3 times daily. 3 Active sertraline (Zoloft) 50 MG tablet 50 mg. 3 Active terazosin (Hytrin) 2 MG capsule 2 mg. 2 Active cholecalciferol (Vitamin D-3) 25 MCG (1000 UT) capsule Take 1,000 Units by mouth in the morning. Active docusate sodium (Colace) 100 MG capsule Take 100 mg by mouth in the morning. Active [place]-3 Fatty Acids (Fish Oil) 1000 MG capsule delayed-release Take 1 mg by mouth in the morning. Active melatonin 3 MG tablet Take 3 mg by mouth at bedtime. Active Multiple Vitamins-Mineral s (multivitamin with minerals) tablet Take 1 tablet by mouth in the morning. Active polyethylene glycol, PEG, 3350 (Miralax) 17 g packet Take 17 g by mouth in the morning. Active acetaminophen (Tylenol) 325 MG tablet Take 650 mg by mouth every 4 (four) hours if needed for mild pain. Active bisacodyl (Bisacodyl Laxative) 10 MG suppository Insert 10 mg into the rectum if needed each day for constipation. Active dicyclomine (Bentyl) 10 MG capsule Take 10 mg by mouth if needed (before meals). Active magnesium hydroxide (Milk of Magnesia) 400 MG/5ML suspension Take 30 mL by mouth if needed at bedtime for constipation. Active polycarbophil (Fibercon) 625 MG tablet Take by mouth in the morning. Active DULoxetine (Cymbalta) [address] capsule Take 20 mg by mouth 2 times daily. Do not crush or chew. Active Lidocaine 4 % patch Apply 1 patch topically in the morning. Remove & discard patch within 12 hours or as directed by MD. Active oseltamivir (Tamiflu) 75 MG capsule Active sodium phosphate (Fleet) 3.5-9.5 GM/59ML enema Insert into the rectum. Active hydroCHLOROthiaz spencer (Microzide) 12.5 MG capsule Take 12.5 mg by mouth Once per day. Active metFORMIN, OSM, (Fortamet) 500 MG 24 hr tablet Take 500 mg by mouth with evening meal. Do not crush, chew, or split. Active oxyCODONE (Oxy-IR) 5 MG immediate release capsule Take by mouth. Active losartan (Cozaar) 25 MG tablet Take 25 mg by mouth Once per day. Active lactulose (Chronulac) 10 GM/15ML solution Take 20 g by mouth 3 times daily. Active nystatin (Mycostatin) cream Apply topically if needed. Active loperamide (Imodium) 2 MG capsule Take 2 mg by mouth if needed in the morning, at noon, in the evening, and at bedtime for diarrhea. Active amoxicillin (Amoxil) 500 MG capsule Take 1 capsule (500 mg) by mouth every 8 (eight) hours for 7 days. 21 capsule 03/13/20 24 Active Problems No known active problems Encounters Date Type Department Care Team Description 03/06/2024 10:00 AM EST Office Visit [facility] ADULT D[facility]AL [address] [place] [address] Adam Graham DDS 02/01/2024 11:00 AM EST Office Visit [facility] D[facility] [address] [place] [address] Kristi Eckert 01/18/2024 1:30 PM EST Office Visit [address] [address] Jorge Alberto Quintero DMD from Last 3 Months Social History Tobacco Use Types Packs/Day Years Used Date Smoking Tobacco: Unknown Tobacco Cessation:Counseling Given: Not Answered Alcohol Use Standard Drinks/Week Comments Defer 0 (1 standard drink = 0.6 oz pur e alcohol) Sex and Gender Information Value Date Recorded Sex Assigned at Male 12/15/2022 6:01 PM EDT Legal Sex Male 5:59 PM EDT Gender Identity Male 12/15/2022 6:01 PM EDT Sexual Orientation Straight 12/15/2022 6: 01 PM EDT Last Filed Vital Signs Vital Sign Reading Time Taken Comments Blood Pressure 116/68 03/06/2024 10:08 AM EST Pulse 60 03/06/2024 10:08 AM EST Temperature - - Respiratory Rate - - Oxygen Saturation - - Inhaled Oxygen Concentration - - Weight - - Height - - Body Mass Index - - Plan of Treatment Upcoming Encounters Date Type Department Care Team (Late st Contact Info) Description 04/18/2024 11:00 AM EST Office Visit [facility] D[facility] [address] [place] [address] Kristi Eckert [address] [place] [address] Health Maintenance Due Date Last Done Comments Anal Pap 1941 Depression Screening 1941 Lipid Panel 1941 SDOH Screening 1941 Alcohol/Substance Use Screening 1953 Hepatitis A Vaccines (1 of 2 - Risk 2-dose series) 01/14/1960 Hepatitis B Vaccines (1 of 3 - Risk 3-dose series) 2001 RSV Patients and Patients Aged 60 years or older (1 - 1-dose 75+ series) 01/14/2016 DTaP/Tdap/Td Vaccines (2 - Tdap) 08/18/2022 08/18/2012, 11/27/2010 COVID-19 Vaccine (5 - season) 2023 01/26/2022, 02/14/2021, 06/21/2020, Additional history exists Influenza Vaccine (#1) 2023 , 11/25/2021, 04/09/2021, Additional history exists Dental Oral Exam 07/18/2024 01/18/2024, , 12/22/2022 Dental Prophylaxis 08/01/2024 02/01/2024, 0 10/05/2023, 06/15/2023, Additional history exists Dental X-Ray: Bitewings 01/18/2025 01/18/20, 09/28/2023, 12/22/2022 Tobacco Screening 03/06/2025 03/06/2024 Dental X-Ray: Full Mouth 12/23/2025 12/22/2022 Pneumococcal Vaccine: 50+ Years Completed 08/30/2016, 07/15/2014, 09/21/2006 Zoster Vaccines Completed 01/30/2020, 0305/2019, 08/18/2012 HIB Vaccines Aged Out No longer eligi ble based on patient's age to complete this topic HPV Vaccines Aged Out No longer eligi ble based on patient's age to complete this topic IPV Vaccines Aged Out No longer eligi ble based on patient's age to complete this topic Meningococcal Vaccine Aged Out No magnus alysa eligible based on patient's age to complete this topic RSV under 20 months Aged Out No longe r eligible based on patient's age to complete this topic Rotavirus Vaccines Aged Out No longer eligible based on patient's age to complete this topic Procedures Procedure Name Priority Date/Time Associated Diagnosis Comments 14 EXTRACTION, ERUPTED TOOTH OR EXPOSED ROOT (ELEVATION AND/OR FORCEPS REMOVAL) Routine 03/06/2024 10:00 AM EST ADJUNCTIVE GENERAL SERVICES - MISCELLANEOUS SERVICES - CLEANING AND INSPECTION OF REMOVABLE PARTIAL DENTURE, MAXILLARY Routine 02/01/2024 11:00 AM EST TOPICAL APPLICATION OF FLUORIDE VARNISH Routine 02/01/2024 11:00 AM EST PROPHYLAXIS - ADULT Routine 02/01/2024 1 1:00 AM EST INTRAORAL - PERIAPICAL EACH ADDITIONAL RADIOGRAPHIC IMAGE Routine 01/18/2024 1:30 PM EST INTRAORAL - PERIAPICAL FIRST RADIOGRAPHIC IMAGE Routine 01/18/2024 1:30 PM EST BITEWINGS - 4 RADIOGRAPHIC IMAGES Routine 01/18/2024 1:30 PM EST COMPREHENSIVE ORAL EVALUATION - NEW OR ESTABLISHED PATIENT Routine 01/18/2024 1:30 PM EST 2,3,9,10,11,12 PARTIAL DENTURE - CAST METAL Routine 01/18/2024 12:00 AM EST DIAGNOSTIC - DIAGNOSTIC IMAGING - INTRAORAL - COMPREHENSIVE SERIES OF RADIOGRAPHIC IMAGES Routine 12/22/2022 2:00 PM EDT from Last 3 Months or Most Recently Relevant to Health Maintenance
--- OUTSIDE RECORDS SUMMARY | 2024-04-11 15:45 | XMS_ITS | Encounter Summary ---
Author Organization [employer] [facility] Address [address] [place] [address] [place] [address] Care Team Providers Care Rasper Machine Operator Name Role Phone Unavailable Primary Care Provider Unavailabl e Encounter Details Date Type Department Care Team (Late st Contact Info) Description 02/21/2023 Abstract [facility] DENTAL [address] [place] [address] Jorge Alberto Quintero DMD [address] [place], [place] [id number] Social History Tobacco Use Types Packs/Day Years Used Date Smoking Tobacco: Unknown Alcohol Use Standard Drinks/Week Comments Defer 0 (1 standard drink = 0.6 oz pur e alcohol) Sex and Gender Information Value Date Recorded Sex Assigned at Male 12/15/2022 6:01 PM EDT Legal Sex Male 5:59 PM EDT Gender Identity Male 12/15/2022 6:01 PM EDT Sexual Orientation Straight 12/15/2022 6: 01 PM EDT documented as of this encounter Plan of Treatment Upcoming Encounters Date Type Department Care Team (Late st Contact Info) Description 04/18/2024 11:00 AM EST Office Visit [facility] DENTAL [address] [place], [place] [phone] Kristi Eckert [address] [place] [address] documented as of this encounter Visit Diagnoses Not on filedocumented in this encounter
--- OUTSIDE RECORDS SUMMARY | 2024-04-11 15:45 | XMS_ITS | Encounter Summary ---
Author Organization [employer] [facility] Address [address] [place] [address] [place] [address] Care Team Providers Care Business Operations Specialist Name Role Phone Unavailable Primary Care Provider Unavailabl e Encounter Details Date Type Department Care Team (Late st Contact Info) Description 03/11/2023 Abstract [facility] DENTAL [address] [place] [address] Cory Ramos Social History Tobacco Use Types Packs/Day Years [...] Description 04/18/2024 11:00 AM EST Office Visit [facility] DENTAL [address] [place] [address] Kristi Eckert [address] [place] [address] documented as of this encounter Visit Diagnoses Not on filedocumented in this encounter
[2024-04-11 18:40] VITALS: BP 198/93; PULSE 60; RESP 16; TEMP 36.6; O2SAT 96
[2024-04-11 19:03] VITALS: BP 198/93; PULSE 60; RESP 16; TEMP 36.6; O2SAT 96
== END 2024-04-11 19:04 | disposition home or self-care (01) ==
PROVIDERS: Emergency Provider Student in an Organized Health Care Education/Training Program; PCP Internal Medicine
DX: L60.0 Ingrowing nail (principal)
CPT/HCPCS: 11730; 99284; J2003

== ENCOUNTER 2024-05-13 11:36 | Outpatient (REF) | payer MEDICARE, SELFPAY ==
[2024-05-13 12:12] LABS: Alanine Aminotransferase 15 U/L (0-40); Albumin Level 3.4 g/dL (3.5-5.0); Alkaline Phosphatase 79 U/L (39-117); Anion Gap 13 (12-20); Aspartate Amino Transferase 25 U/L (5-37); Bilirubin Total 0.3 mg/dL (0.0-1.0); Blood Urea Nitrogen 16 mg/dL (9-16); Calcium 8.4 mg/dL (8.4-10.2); Carbon Dioxide 26 mmol/L (22-29); Chloride 103 mmol/L (96-108); Estimated Glomerular Filt Rate > 60; Glucose Random 206 mg/dL (60-115); Potassium 3.6 mmol/L (3.3-5.1); Sodium 138 mmol/L (135-145); Total Protein 6.4 g/dL (6.5-8.0)
[2024-05-13 12:18] LABS: B Type Natriuretic Peptide 70 pg/mL (<100)
== END 2024-05-13 11:37 | disposition home or self-care (01) ==
LOC: HO.HSH2E 11:36
PROVIDERS: Visit Provider Internal Medicine
DX: Z13.89 Encounter for screening for other disorder (principal)
CPT/HCPCS: 36415; 80053; 83880

== ENCOUNTER 2024-05-17 08:49 | Outpatient (REF) | payer MEDICARE, SELFPAY ==
[2024-05-17 09:23] LABS: Anion Gap 13 (12-20); Blood Urea Nitrogen 18 mg/dL (9-16); Calcium 8.5 mg/dL (8.4-10.2); Carbon Dioxide 28 mmol/L (22-29); Chloride 101 mmol/L (96-108); Estimated Glomerular Filt Rate > 60; Glucose Fasting 95 mg/dL (60-99); Potassium 3.5 mmol/L (3.3-5.1); Sodium 138 mmol/L (135-145)
--- OUTSIDE RECORDS SUMMARY | 2024-05-17 09:32 | XMS_ITS | Clinical Summary ---
Author Organization [employer] Address [address] [facility] 7[address] [place] [address] Care Team Providers Care Business Banker Name Role Phone Unavailable Primary Care Provider [...] mg by mouth in the morning. Active [place]-3 Fatty Acids (Fish Oil) 1000 MG capsule [...] evening, and at bedtime for diarrhea. Active bacitracin 500 UNIT/GM ointment Apply topically 2 times daily. Active LORazepam (Ativan) 0.5 MG tablet Take by mouth. Activ e naproxen (Naprosyn) 500 MG tablet Take 500 mg by mouth with breakfast and with evening meal. Active Active Problems Problem Noted Date Diagnosed Date Benign hypertension 05/02/2024 Brain tumor 05/02/2024 Overview (05/02/2024): Sep 16, 2006 Entered By: SOHAIL DANG Comment: cyst, and benign tumor Feb 12, 2022 Entered By: KYRA BURNHAM Comment: hx of pineal mass w ventriculomegaly s/p resection 2005 Cerebral infarction 05/02/2024 Overview (05/02/2024): Mar 24, 2022 Entered By: KYRA BURNHAM Comment: 03/18/22 MRI small aucuet infart in the left corrie, cont plavix and asa x 3 weeks then cont asa Cerebral infarction, unspecified 05/02/2024 Chest pain 05/02/2024 Overview (05/02/2024): Dec 05, 2015 Entered By: JACOBO COE Comment: [facility] 11/29/15-11/30/15. Stress test, EKG done sent to Scan Dec 05, 2015 Entered By: JACOBO COE Comment: [facility] Cardiology Dr. Mike Carrillo 01/01/16 Dec 05, 2015 Entered By: JACOBO COE Comment: Nuclear Stress test scheduled 12/17/15 [facility] Contracture of palmar fascia 05/02/2024 Overview (05/02/2024): Jan 06, 2012 Entered By: JACOBO COE Comment: left hand Encounter for examination an d observation for other specified reasons 05/02/2024 Fall from ladder 05/02/2024 Frail elderly 05/02/2024 History of colonic polyps 05/02/2024 Overview (05/02/2024): Jan 11, 2012 Entered By: JACOBO COE Comment: 02/22/2006 tubular adenoma, sigmoid divertic, int hemorrhoid Sep 25, 2015 Entered By: JACOBO COE Comment: 01/21/2012 No polyps, repeat 5 yrs Apr 20, 2017 Entered By: JACOBO COE Comment: 12/13/16: totally normal cecum, with exception of a few diverticula of left colon, high fiber diet, repeat 5 years Hyperglycemia due to type 2 diabetes mellitus Lower urinary tract symptoms due to benign prostatic hyperplasia 05/02/2024 Overview (05/02/2024): Sep 27, 2022 Entered By: KYRA BURNHAM Comment: 09/08/22 seen by [facility]ENT Thomason plan for voiding trial after 1 month on finesteride Sep 27, 2022 Entered By: KYRA BURNHAM Comment: UTI 08/27-08/31/22 treated w rocephin and dcd w macrobid Malignant neoplasm of skin 05/02/2024 Obesity 05/02/2024 Parkinson's disease 05/02/2024 Problem related to housing a nd economic circumstances, unspecified 05/02/2024 Pure hypercholesterolemia 05/02/2024 Seizure 05/02/2024 Overview (05/02/2024): Sep 16, 2006 Entered By: SOHAIL DANG Comment: on dilantin Sleep apnea 05/02/2024 Type 2 diabetes mellitus without retinopathy Encounters Date Type Department Care Team Description 05/16/2024 10:00 AM EST Office Visit [facility] DENTAL [address] [place] [address] Jorge Alberto Quintero DMD 05/09/2024 9:30 AM EST Office Visit [facility] D[facility] [address] [place] [address] Jorge Alberto Quintero DMD 05/02/2024 10:30 AM EST Office Visit [facility] DENT[facility] [address] [place] [address] Jorge Alberto Quintero DMD 04/19/2024 11:00 AM EST Office Visit [facility] D[facility] [address] [place] [address] Kristi Eckert 03/06/2024 10:00 AM EST Office Visit [facility] ADULT DENTAL [address] [place] [address] Adam GrahamDAMION from Last 3 Months Social History Tobacco [...] Mass Index - - Plan of Treatment Health Maintenance Due Date Last Done Comments Anal Pap 1941 Depression Screening 1941 Diabetes: Hemoglobin A1C 1941 Lipid Panel 1941 SDOH Screening 1941 Derm Melanoma Skin Check 1941 Diabetes: Foot Exam 1951 Eye Exam 1951 Alcohol/Substance Use Screening 1953 Diabetes: Urine Protein Screening 01/14/1960 Hepatitis A Vaccines (1 of 2 - Risk 2-dose series) 01/14/1960 Hepatitis B Vaccines (1 of 3 - Risk 3-dose series) 2001 RSV Patients and Patients Aged 60 years or older (1 - 1-dose 75+ series) 01/14/2016 DTaP/Tdap/Td Vaccines (2 - Tdap) 08/18/2022 08/18/2012, 11/27/2010 COVID-19 Vaccine ( season) 2023 01/26/2022, 02/14/2021, 06/21/2020, Additional history exists Influenza Vaccine (#1) 2023 , 11/25/2021, 04/09/2021, Additional history exists Dental Oral Exam 07/18/2024 01/18/2024, , 12/22/2022 Dental Prophylaxis 10/18/2024 04/19/2024, 1 04/02/2023, 10/05/2023, Additional history exists Dental X-Ray: Bitewings 01/18/2025 01/18/20, 09/28/2023, 12/22/2022 Tobacco Screening 05/16/2025 05/16/2024 Dental X-Ray: Full Mouth 12/23/2025 12/22/2022 Pneumococcal Vaccine: 50+ Years Completed 08/30/2016, 07/15/2014, 09/21/2006 Zoster Vaccines Completed 01/30/2020, 05/2019, 08/18/2012 HIB Vaccines Aged Out No longer [...] Procedure Name Priority Date/Time Associated Diagnosis Comments DENTURE ADJUSTMENT Routine 05/16/2024 10 :00 AM EST 14 ADD TOOTH TO EXISTING PARTIAL DENTURE Routine 05/09/2024 9:30 AM EST DENTURE FOLLOWUP Routine 05/09/2024 9:30 AM EST DENTURE ADJUSTMENT Routine 05/02/2024 10 :30 AM EST CLEANING AND INSPECTION OF RPD, MAX Routine 04/19/2024 11:00 AM EST PROPHYLAXIS - ADULT Routine 04/19/2024 1 1:00 AM EST TOPICAL APPLICATION OF FLUORIDE VARNISH Routine 04/19/2024 11:00 AM EST 14 EXTRACTION, ERUPTED TOOTH OR EXPOSED ROOT (ELEVATION/FORCEPS REMOVAL) Routine 03/06/2024 10:00 AM EST BITEWINGS - 4 RADIOGRAPHIC IMAGES Routine 01/18/2024 1:30 PM EST COMPREHENSIVE ORAL EVALUATION - NEW OR ESTABLISHED PATIENT Routine 01/18/2024 1:30 PM EST INTRAORAL - COMPLETE SERIES OF RADIOGRAPHIC IMAGES Routine 12/22/2022 2:00 PM EDT from Last 3 Months or Most Recently Relevant to Health Maintenance
--- OUTSIDE RECORDS SUMMARY | 2024-05-17 09:32 | XMS_ITS | Encounter Summary ---
Author Organization [employer] Address [address] [place] [address] Care Team Providers Care Raveler Name Role Phone Unavailable Primary Care Provider Unavailabl e Reason for Visit * Reason Comments Routine Cleaning Encounter Details Date Type Department Care Team (Late st Contact Info) Description 10/05/2023 11:15 AM EDT Office Visit [facility] DENTAL [address] [place] [address] TomekaKristi [address] [place] [address] Social History Tobacco Use Types Packs/Day Years [...] PM EDT documented as of this encounter Progress Notes * Kristi Eckert - 10/05/2023 11:15 AM EDT Patient ID: Saul Zabala is a 83 y.o. male. Time Out: Timeout Date: 10/05/23, Timeout Time: 1115 Location: [facility] Tooth: Maxilla and Mandible Procedure: Prophylaxis Verified the above with Nurses. Confirmed via patient's chart, intraorally and by radiographs. Medical Hx: Medications and Med Hx reviewed from paperwork given by nurses. Updated in chart. Treatment Provided Dental procedures in this visit D1110 - PROPHYLAXIS - ADULT (Completed) Service provider: Kristi Eckert Billing provider: Adam Graham DDS D1206 - TOPICAL APPLICATION OF FLUORIDE VARNISH (Completed) Service provider: Kristi Eckert Billing provider: Adam Graham DDS D0220 - INTRAORAL - PERIAPICAL FIRST RADIOGRAPHIC IMAGE (Completed) Service provider: Kristi Eckert Billing provider: Adam Graham DDS [id number] - ORAL HYGIENE INSTRUCTIONS (Completed) Service provider: Kristi Eckert Billing provider: Adam Graham DDS Instruments Used: Hand Scalers and Prophy angle Fluoride: 5% NaF varnish applied and POI given Oral Cancer Screening: No lesions Head/Neck Exam: No Lesions Calculus: Light and Generalized Plaque: Moderate and Generalized Stain: None Bleeding: Light and Generalized Gingiva: inflamed OH: Fair Perio Chart: not due for perio charting until 06/2024 Oral hygiene instructions provided to patient including brushing technique and flossing. Recommendations: [place] two times daily, modified arias technique, Floss daily, Soft bristle toothbrush Recall Frequency: 3 mo Behavior: Pt was quiet today but did allow for prophy. Pt is having pain on UL. Pt kept saying he thinks its because the girl dropped my partial and now it hurts me. Pt has significant bone loss inbuccal area #14. Root is exposed in buccal area. Recommend patient to follow up with Dr. Quintero and have present at limited exam so they can make a decision together on next steps for the tooth. NV: limited exam with Dr. Quintero Hygienist: Kristi Eckert RDH documented in this encounter Plan of Treatment Not on file documented as of this encounter Procedures Procedure Name Priority Date/Time Associated Diagnosis Comments TOPICAL APPLICATION OF FLUORIDE VARNISH Routine 10/05/2023 11:15 AM EDT PROPHYLAXIS - ADULT Routine 10/05/2023 1 1:15 AM EDT ORAL HYGIENE INSTRUCTIONS Routine 2023 11:15 AM EDT INTRAORAL - PERIAPICAL FIRST RADIOGRAPHIC IMAGE Routine 10/05/2023 11:15 AM EDT documented in this encounter Visit Diagnoses Not on filedocumented in this encounter
--- OUTSIDE RECORDS SUMMARY | 2024-05-17 09:32 | XMS_ITS | Encounter Summary ---
Author Organization [employer] Address [address] [place] [address] Care Team Providers Care Claims Adjuster Supervisor Name Role Phone Unavailable Primary Care Provider Unavailabl e Reason for Visit * Reason Comments Dentures Denture adjustment Encounter Details Date Type Department Care Team (Late st Contact Info) Description 05/16/2024 10:00 AM EST Office Visit [facility] DENTAL [address] [place] [address] Jorge Alberto Quintero DMD [address] [place] [address] Social History Tobacco Use Types Packs/Day Years [...] as of this encounter Progress Notes * Jorge Alberto Quintero DMD - 05/16/2024 10:00 AM EST C/C: sore spot at UL buccal flange area at #14 Shorten, thin and hungarian the buccal flange area of #14 Pt feels better Raven documented in this encounter Plan of Treatment Not on file documented as of this encounter Procedures Procedure Name Priority Date/Time Associated Diagnosis Comments DENTURE ADJUSTMENT Routine 05/16/2024 10:00 AM EST documented in this encounter Visit Diagnoses Not on filedocumented in this encounter
--- OUTSIDE RECORDS SUMMARY | 2024-05-17 09:32 | XMS_ITS | Encounter Summary ---
Author Organization [employer] Address [address] [place] [address] [place] [address] Care Team Providers Care Turnstile Collector Name Role Phone Unavailable Primary Care Provider Unavailabl e Encounter Details Date Type Department Care Team (Late st Contact Info) Description 02/21/2023 Abstract [facility] DENTAL [address] [place] [address] Jorge Alberto Quintero, DMD [address] [facility] [place] [address] Social History Tobacco Use Types Packs/Day Years [...] as of this encounter Plan of Treatment Not on file documented as of this encounter Visit Diagnoses Not on filedocumented in this encounter
--- OUTSIDE RECORDS SUMMARY | 2024-05-17 09:32 | XMS_ITS | Encounter Summary ---
Author Organization [employer] Address [address] [place] [address] [place] [address] Care Team Providers Care Aircraft Loadmaster Superintendent Name Role Phone Unavailable Primary Care Provider Unavailabl e Encounter Details Date Type Department Care Team (Late st Contact Info) Description 03/11/2023 Abstract [facility] DENTAL [address] [place] [address] Cory Ramos Social History Tobacco Use Types [...]
--- OUTSIDE RECORDS SUMMARY | 2024-05-17 09:32 | XMS_ITS | Encounter Summary ---
Author Organization [employer] Address [address] [place] [address] Care Team Providers Care Automotive Lot Attendant Name Role Phone Unavailable Primary Care Provider Unavailabl e Reason for Visit * Reason Comments Routine Cleaning Encounter Details Date Type Department Care Team (Late st Contact Info) Description 04/19/2024 11:00 AM EST Office Visit [facility] DENTAL [address] [place] [address] Tomeka Kristi [address] [place] [address] Social History Tobacco Use Types Packs/Day Years [...] encounter Progress Notes * Kristi Eckert - 04/19/2024 11:00 AM EST Patient ID: Saul Zabala is a 84 y.o. male. Time Out: Timeout Date: 04/19/24 (prophy), Timeout Time: 1103 Location: [facility] Tooth: Maxilla and Mandible Procedure: Prophylaxis [...] Kristi Eckert Billing provider: Adam Graham DDS [id number] - ADJUNCTIVE GENERAL SERVICES - MISCELLANEOUS SERVICES - CLEANING AND INSPECTION OF REMOVABLE PARTIAL DENTURE, MAXILLARY (Completed) Service provider: Kristi Eckert Billing provider: Adam Graham DDS Instruments Used: Ultrasonic Scalers, Hand Scalers, and Prophy angle Fluoride: 5% NaF varnish applied and POI given Oral Cancer Screening: No lesions Head/Neck Exam: No Lesions Calculus: Light and Generalized Plaque: Light and Generalized Stain: Light and Generalized Bleeding: Light and Localized Gingiva: Erythematous OH: Fair Perio Chart: due 06/2024 Oral hygiene instructions provided to patient including brushing technique and flossing. Recommendations: [place] two times daily, modified arias technique, Floss daily, Soft bristle toothbrush Recall Frequency: 3 mo Behavior: Pt was sleeping through appointment. Pt did open for cleaning but patient declined to move from wheelchair to pt tx chair. NV: 3 mo recall Hygienist: Kristi Eckert RDH documented in this encounter Plan of Treatment Not on file documented as of this encounter Procedures Procedure Name Priority Date/Time Associated Diagnosis Comments TOPICAL APPLICATION OF FLUORIDE VARNISH Routine 04/19/2024 11:00 AM EST PROPHYLAXIS - ADULT Routine 04/19/2024 1 1:00 AM EST CLEANING AND INSPECTION OF RPD, MAX Routine 04/19/2024 11:00 AM EST documented in this encounter Visit Diagnoses Not on filedocumented in this encounter
--- OUTSIDE RECORDS SUMMARY | 2024-05-17 09:32 | XMS_ITS | Encounter Summary ---
Author Organization [employer] Address [address] [place] [address] Care Team Providers Care Linseed Oil Refiner Name Role Phone Unavailable Primary Care Provider Unavailabl e Reason for Visit * Reason Comments Dentures Upper partial adjust ment Encounter Details Date Type Department Care Team (Late st Contact Info) Description 05/02/2024 10:30 AM EST Office Visit [facility] [address] [place] [address] Jorge Alberto Quintero DMD [address] [place] [address] Social History Tobacco Use Types Packs/Day Years [...] Notes * Jorge Alberto Quintero DMD - 05/02/2024 10:30 AM EST C/C: UL clasp irritate pt's gum after exo #14 Impression is being taken to add tooth#14 on his upper casting partial denture I called and Brennan ( concrete laborer from [facility]) and he will not charge the lab fee for this repair NV: Delivery of lab repair P/ Raven documented in this encounter Plan of Treatment Not on file documented as of this encounter Procedures Procedure Name Priority Date/Time Associated Diagnosis Comments DENTURE ADJUSTMENT Routine 05/02/2024 10:30 AM EST documented in this encounter Visit Diagnoses Not on filedocumented in this encounter
--- OUTSIDE RECORDS SUMMARY | 2024-05-17 09:32 | XMS_ITS | Encounter Summary ---
Author Organization [employer] Address [address] [address] Care Team Providers Care Identity Access Management Architect Name Role Phone Unavailable Primary Care Provider Unavailabl e Reason for Visit * Reason Comments Dentures Upper partial delive ry after lab add tooth Encounter Details Date Type Department Care Team (Late st Contact Info) Description 05/09/2024 9:30 AM EST Office Visit [facility] [address] [place] [address] Jorge Alberto Quintero DMD [address] [place] [address] Social History Tobacco Use Types Packs/Day Years [...] Notes * Jorge Alberto Quintero DMD - 05/09/2024 9:30 AM EST Delivery of lab repair P/ (adding tooth#14 on upper casting partial denture). Pt feels fine Brennan from [facility] did not charge for this repair NV: adjustment if needed Raven documented in this encounter Plan of Treatment Not on file documented as of this encounter Procedures Procedure Name Priority Date/Time Associated Diagnosis Comments DENTURE FOLLOWUP Routine 05/09/2024 9:30 AM EST 14 ADD TOOTH TO EXISTING PARTIAL DENTURE Routine 05/09/2024 9:30 AM EST documented in this encounter Visit Diagnoses Not on filedocumented in this encounter
== END 2024-05-17 08:50 | disposition home or self-care (01) ==
LOC: HO.HSH2E 08:49
PROVIDERS: Visit Provider Internal Medicine
DX: R60.9 Edema, unspecified (principal)
CPT/HCPCS: 36415; 80048

== ENCOUNTER 2024-06-13 13:06 | Outpatient (AMB) | payer MEDICARE, SELFPAY ==
--- NOTE | 2024-06-13 13:06 | A.OFFVIS_ITS ---
Intake Visit Reasons: 6M follow up Intake Note: Patient is present for 6M F/U Urology Medication:FINASTERIDE Antibiotic Allergy:NONE Blood Thinner:NONE Field Contact Technician Required: No Allergies lisinopril Allergy (Verified 06/13/24 13:08) Unknown phenytoin [From Dilantin] Allergy (Verified 06/13/24 13:08) Unknown PFSH Medical History GEORGE (acute kidney injury) Urine retention BPH (benign prostatic hyperplasia) Anemia Constipation CVA (cerebral vascular accident) Skin cancer (melanoma) Parkinson's disease Essential tremor Obstructive sleep apnea Seizures Hyperlipidemia HTN (hypertension) Diabetes Surgical History H/O brain surgery Family History Father Cancer Father Cancer Brother Heart attack Social History Alcohol intake: former Year quit: soci Patient Tobacco Use Status: Never used Tobacco Advance Directives Date on File: 01/04/23 Coding
--- NOTE | 2024-06-13 15:25 | A.OFFVIS_ITS ---
Intake Intake Visit Reasons: 6M follow up Allergies lisinopril Allergy (Verified 06/13/24 13:08) Unknown phenytoin [From Dilantin] Allergy (Verified 06/13/24 13:08) Unknown HPI HPI Comments History of Present Illness Details Pleasant 83-year-old patient [facility] [employer] Suprapubic tube placed January 2023 Interval evaluation Suprapubic tube site examined. Normal. Effective drainage Medications include terazosin 4 mg q.h.s. 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 In addition has Parkinson's High risk for recurrent UTI Suprapubic tube 02/03 [facility] Medical History GEORGE (acute kidney injury) Urine retention BPH (benign prostatic hyperplasia) Anemia Constipation CVA (cerebral vascular accident) Skin cancer (melanoma) Parkinson's disease Essential tremor Obstructive sleep apnea Seizures Hyperlipidemia HTN (hypertension) Diabetes Surgical History H/O brain surgery Family History Father Cancer Father Cancer Brother Heart attack Social History Alcohol intake: former Year quit: soci Patient Tobacco Use Status: Never used Tobacco Advance Directives Date on File: 01/04/23 Review of Systems Const Denies chills and Denies fever(s) Card Reports no additional complaints and Denies syncope Resp Denies cough GI Denies abdominal pain and Denies heartburn Reports as per HPI and Denies change in libido Neuro Denies syncope Psych Denies change in libido Endo Denies change in libido Physical Exam Const General: cooperative, healthy appearing, comfortable and no acute distress Orientation/consciousness: patient oriented x3 HEENT Face and sinus: Yes normal facial exam Mouth: moist mucous membranes Neck Neck: Yes normal visual inspection, Yes full ROM and Yes trachea midline Chest Chest palpation & inspection: normal inspection of the chest Resp Effort & Inspection: normal respiratory effort, able to speak in complete sentences and no respiratory distress GI Inspection: Yes normal to inspection Back/Spine/Pelvis Cervical Spine: normal cervical lordosis Thoracic/Lumbar Spine: thoracic and lumbar spine normal to inspection Skin General skin exam: no rashes or lesions noted Neuro General: patient oriented x3, gait normal, tone normal and moves all extremities Extrem General: Yes normal to inspection and Yes capillary refill normal Assessment & Plan Assessment & Plan (1) Neurogenic urinary bladder disorder: Code(s): N31.9 - Neuromuscular dysfunction of bladder, unspecified Plan Stop finasteride and terazosin 4 mg Start vitamin-C and methenamine Continue six-month review Patient Instructions: This note is constructed using voice recognition software. While every effort has been made to ensure accuracy staff development educator errors may have been included. Imaging studies, laboratory and physical exam results were discussed and reviewed in detail. No major barriers to patient understanding were identified. An opportunity to ask questions regarding the treatment plan was provided. All questions were answered. The patient expressed understanding and agreement with the above treatment plan. The patient is aware they should contact our office by phone for worsening of their current condition or the appearance of new urologic symptoms. Compliance is encouraged with any medications and followup testing that is ordered. It is a privilege to participate in the urologic care of your patient. If you have any questions or concerns regarding treatment for the above conditions, or other urologic issues, please do not hesitate to contact me. The office telephone contact is [phone]. Sincerely, Dr Uday Daniels MD, [facility] - Urology Compassionate Specialist Care for the Genitourinary System Coding Level of Care Code 58993-Evdy Fac sub, mod Diagnoses Neurogenic urinary bladder disorder N31.9
--- OUTSIDE RECORDS SUMMARY | 2024-06-13 15:42 | XMS_ITS | Encounter Summary ---
Author Organization [employer] Address [address] [place] [address] [place] [address] Care Team Providers Care Tool Grinder Operator Name Role Phone Unavailable Primary Care Provider Unavailabl e Encounter Details Date Type Department Care Team ([facility] st Contact Info) Description 03/11/2023 Abstract [facility] [address] [place] [address] Cory Ramos Social History Tobacco Use Types [...]
--- OUTSIDE RECORDS SUMMARY | 2024-06-13 15:42 | XMS_ITS | Encounter Summary ---
Author Organization [employer] Address [address] [place] [address] [place] [address] Care Team Providers Care Blood Bank Booking Clerk Name Role Phone Unavailable Primary Care Provider Unavailabl e Encounter Details Date Type Department Care Team (Late st Contact Info) Description 02/21/2023 Abstract [facility] [address] [place] [address] Jorge Alberto Quintero, DMD [address] [facility] [place] [address] Social History Tobacco Use Types Packs/Day Years [...]
--- OUTSIDE RECORDS SUMMARY | 2024-06-13 15:42 | XMS_ITS | Clinical Summary ---
Author Organization [employer] Address 75 [facility] 7t [place] [address] Care Team Providers Care Maintenance Planner Name Role Phone Unavailable Primary Care Provider [...] mg by mouth in the morning. Active [place]-3 Fatty Acids (Fish Oil) 1000 MG capsule [...] 05, 2015 Entered By: JACOBO COE Comment: [facility] 11/29/15-11/30/15. Stress test, EKG done sent to Scan Dec 05, 2015 Entered By: JACOBO COE Comment: [facility] Cardiology Dr. Mike Carrillo 01/01/16 [...] By: KYRA BURNHAM Comment: 09/08/22 seen by PVRTENT Thomason plan for voiding trial after 1 [...] Encounters Date Type Department Care Team Description 05/23/2024 9:30 AM EDT Office Visit [facility] [address] [place] [phone] Jorge Alberto Quintero DMD 05/16/2024 10:00 AM EST Office Visit [facility] [address] [place] [address] Jorge Alberto Quintero DMD 05/09/2024 9:30 AM EST Office Visit [facility] [address] [place] [address] Jorge Alberto Quintero DMD 05/02/2024 10:30 AM EST Office Visit [facility] [address] [place] [address] Jorge Alberto Quintero DMD 04/19/2024 11:00 AM EST Office Visit [facility] [address] [place] [address] Kristi Eckert from Last 3 Months Social History Tobacco [...] Additional history exists Dental X-Ray: Bitewings 01/18/2025 01/18/20 24, 09/28/2023, 12/22/2022 Tobacco Screening 05/23/2025 05/23/2024 Dental X-Ray: Full Mouth 12/23/2025 12/22/2022 Pneumococcal [...] Date/Time Associated Diagnosis Comments DENTURE FOLLOWUP Routine 05/23/2024 9:30 AM EDT DENTURE ADJUSTMENT Routine 05/16/2024 10 :00 AM [...] FLUORIDE VARNISH Routine 04/19/2024 11:00 AM EST BITEWINGS - 4 RADIOGRAPHIC IMAGES Routine 01/18/2024 1:30 PM EST COMPREHENSIVE ORAL EVALUATION - NEW OR ESTABLISHED PATIENT Routine 01/18/2024 1:30 PM EST INTRAORAL - COMPLETE SERIES OF RADIOGRAPHIC IMAGES Routine 12/22/2022 2:00 PM EDT from Last 3 Months or Most Recently Relevant to Health Maintenance
== END 2024-06-13 16:00 | disposition home or self-care (01) ==
LOC: HO.HUSV 13:06
PROVIDERS: PCP Internal Medicine; Visit Provider Urology
DX: N31.9 Neuromuscular dysfunction of bladder, unspecified (principal)
CPT/HCPCS: 99309

== ENCOUNTER 2024-06-18 07:57 | Outpatient (REF) | payer MEDICARE, SELFPAY ==
--- OUTSIDE RECORDS SUMMARY | 2024-06-18 08:04 | XMS_ITS | Encounter Summary ---
Author Organization [employer] Address [address] [place] [address] [place] [address] Care Team Providers Care Mine Captain Name Role Phone Unavailable Primary Care Provider Unavailabl e Encounter Details Date Type Department Care Team (Late st Contact Info) Description 02/21/2023 Abstract [facility] [address] [place] [address] Jorge Alberto Quintero, DMD [address] [facility] [place] [address] Social History Tobacco Use Types Packs/Day Years [...]
--- OUTSIDE RECORDS SUMMARY | 2024-06-18 08:04 | XMS_ITS | Clinical Summary ---
Author Organization [employer] Address 75 [facility] 7t [place] [address] Care Team Providers Care Otolaryngologist Name Role Phone Unavailable Primary Care Provider [...] mg by mouth in the morning. Active [place]-3 Fatty Acids (Fish Oil) 1000 MG capsule [...] 05, 2015 Entered By: JACOBO COE Comment: [facility] 11/29/15-11/30/15. Stress test, EKG done sent to Scan Dec 05, 2015 Entered By: JACOBO COE Comment: [facility] Cardiology Dr. Mike Carrillo 01/01/16 Dec 05, [...] Description 05/23/2024 9:30 AM EDT Office Visit [facility] [address] [place] [address] Jorge Alberto Quintero DMD 05/16/2024 10:00 AM EST Office Visit [facility] [address] [place] [address] Jorge Alberto Quintero DMD 05/09/2024 9:30 AM EST Office Visit [facility] [address] [place] [address] Jorge Alberto Quintero DMD 05/02/2024 10:30 AM EST Office Visit [facility] [address] [place] [address] Jorge Alberto Quintero DMD 04/19/2024 11:00 AM EST Office Visit [facility] [address] [place] [address] Kristi Eckert from Last 3 Months Social [...]
--- OUTSIDE RECORDS SUMMARY | 2024-06-18 08:04 | XMS_ITS | Encounter Summary ---
Author Organization [employer] Address [address] [place] [address] [place] [address] Care Team Providers Care Computer Hardware Engineer Name Role Phone Unavailable Primary Care Provider Unavailabl e Encounter Details Date Type Department Care Team ([facility] st Contact Info) Description 03/11/2023 Abstract [facility] [address] [place] [address] Cory Ramos Social History Tobacco Use Types [...]
[2024-06-19 03:13] LABS: Prolactin 7.6 ng/mL (2.0-18.0)
[2024-06-25 14:28] LABS: Testosterone, Free 55.9 pg/mL (30.0-135.0); Testosterone, Total 442 ng/dL (250-1100)
== END 2024-06-18 07:58 | disposition home or self-care (01) ==
LOC: HO.HSH2E 07:57
PROVIDERS: Visit Provider Internal Medicine Endocrinology, Diabetes & Metabolism
DX: G20.C Parkinsonism, unspecified (principal)
CPT/HCPCS: 36415; 84146; 84402; 84403

== ENCOUNTER 2024-08-16 11:12 | Outpatient (AMB) | payer MEDICARE, SELFPAY ==
--- NOTE | 2024-08-16 11:13 | MHC.OFFVIS ---
Vital Signs 08/16/24 11:19 Height 5 ft 9 in Intake Visit Reasons: follow up Intake Note: Patient presents for follow up tremors Housing Quality Standard Inspector Required: No Accompanied by: Other Relationship Allergies lisinopril Allergy (Verified 08/16/24 11:19) Unknown phenytoin [From Dilantin] Allergy (Verified 08/16/24 11:19) Unknown HPI Comments Details: 84-year-old male with history of essential tremors, Parkinson's disease(RICK positive )and obstructive sleep apnea not on CPAP and seizures comes for follow up after . His last seizure was in 2008 he is very tired and sleepy today - says he is fatigued and dupree snot feel good. He is in a [place] home now. he uses a walker and rarely walks [facility] Medical History (Updated 08/16/24 @ 11:39 by Vicky Pearson MD) Change in mental state GEORGE (acute kidney injury) Urine retention BPH (benign prostatic hyperplasia) Anemia Constipation CVA (cerebral vascular accident) Skin cancer (melanoma) Parkinson's disease Essential tremor Obstructive sleep apnea Seizures Hyperlipidemia HTN (hypertension) Diabetes Surgical History H/O brain surgery Family History Father Cancer Father Cancer Brother Heart attack Social History Alcohol intake: former Year quit: soci Patient Tobacco Use Status: Never used Tobacco Advance Directives Date on File: 01/04/23 Physical Exam Const Other: sleepy- says he does not feel good Mild decreased facial expression and blink Nutritional Appearance: overweight Neuro Other: NOHead tremors Left UE rest tremors Speech hypophonia. fine finger movements decreased bilaterally foot times decreased bilaterally mild cogwheel rigidity He was in wheel chair today Gait was not evaluated Assessment & Plan Assessment & Plan (1) Change in mental state: Comment: r/o infection , dehydration, other metabolic etiologies Code(s): R41.82 - Altered mental status, unspecified Category: Medical (2) Parkinson's disease: Code(s): G20 - Parkinson's disease Category: Medical Qualifiers: Dyskinesia presence: without dyskinesia Fluctuating manifestations: without fluctuating manifestations Qualified Code(s): G20.A1 - Parkinson's disease without dyskinesia, without mention of fluctuations (3) Essential tremor: Code(s): G25.0 - Essential tremor Category: Medical (4) Obstructive sleep apnea: Code(s): G47.33 - Obstructive sleep apnea (adult) (pediatric) Category: Medical (5) Seizures: Code(s): R56.9 - Unspecified convulsions Category: Medical Plan Continue carbidopa levodopa 25/100 2 tablets 4 times a day. Continue Primidone 250mg bid Keppra 750 mg b.i.d. ER or urgent care for evaluation of change in mental state Coding Level of Care Code Est Pt Level 4 ([address]) Diagnoses Change in mental state R41.82 Parkinson's disease without dyskinesia or fluctuating manifestations G20.A1 Dyskinesia presence: without dyskinesia Fluctuating manifestations: without fluctuating manifestations Essential tremor G25.0 Obstructive sleep apnea G47.33 Seizures R56.9
--- OUTSIDE RECORDS SUMMARY | 2024-08-16 13:21 | XMS_ITS | Clinical Summary ---
Author Organization [employer] Address 75 [facility] 7t [place] [address] Care Team Providers Care Radio Sales Account Executive Name Role Phone Unavailable Primary Care Provider [...] mg by mouth in the morning. Active [place]-3 Fatty Acids (Fish Oil) 1000 MG capsule [...] with breakfast and with evening meal. Active methenamine hippurate (Hiprex) 1 g tablet Take 1 g by mouth 2 times daily. Active potassium chloride (Klor-Con) 20 MEQ packet Take 20 mEq by mouth 2 times daily. Active Active Problems Problem Noted Date Diagnosed [...] 05, 2015 Entered By: JACOBO COE Comment: [facility] 11/29/15-11/30/15. Stress test, EKG done sent to Scan Dec 05, 2015 Entered By: JACOBO COE Comment: [facility] Cardiology Dr. Mike Carrillo 01/01/16 Dec 05, 2015 Entered By: JACOBO COE Comment: Nuclear Stress test scheduled 12/17/15 Cardiology Contracture of palmar fascia 05/02/2024 Overview [...] By: KYRA BURNHAM Comment: 09/08/22 seen by PVU TRENT Kemp plan for voiding trial after 1 month [...] Encounters Date Type Department Care Team Description 07/25/2024 10:15 AM EDT Office Visit [facility] [address] [place] [address] Kristi Eckert 07/18/2024 8:45 AM EDT Office Visit [facility] [address] [place] [address] Jorge Alberto Quintero DMD 05/23/2024 9:30 AM EDT Office Visit [facility] [address] [place] [address] Jorge Alberto Quintero DMD 05/16/2024 10:00 AM EST Office Visit [facility] [address] [place] [address] Jorge Alberto Quintero DMD from Last 3 [...] 02/14/2021, 06/21/2020, Additional history exists Influenza Vaccine (Season Ended) 2024 12/15/2022, 11/25/2021, 04/09/2021, Additional history exists Dental X-Ray: Bitewings 01/18/2025 01/18/20 24, 09/28/2023, 12/22/2022 Dental Oral Exam 01/19/2025 07/18/2024, 08/2023, 09/28/2023, Additional history exists Dental Prophylaxis 01/26/2025 07/25/2024, 0 04/19/2024, 02/01/2024, Additional history exists Tobacco Screening 07/18/2025 07/18/2024 Dental X-Ray: Full Mouth 12/23/2025 12/22/2022 Pneumococcal [...] patient's age to complete this topic Meningococcal B Vaccine Aged Out No l onger eligible based on patient's age to complete [...] Procedure Name Priority Date/Time Associated Diagnosis Comments CLEANING AND INSPECTION OF RPD, MAX Routine 07/25/2024 10:15 AM EDT COMPREHENSIVE PERIODONTAL EVALUATION - NEW OR ESTABLISHED PATIENT Routine 07/25/2024 10:15 AM EDT NUTRITIONAL COUNSELING FOR CONTROL OF DENTAL DISEASE Routine 07/25/2024 10:15 AM EDT ORAL HYGIENE INSTRUCTIONS Routine 2024 10:15 AM EDT TOPICAL APPLICATION OF FLUORIDE VARNISH Routine 07/25/2024 10:15 AM EDT PROPHYLAXIS - ADULT Routine 07/25/2024 1 0:15 AM EDT FULL MOUTH DEBRIDEMENT TO ENABLE A COMPREHENSIVE ORAL EVALUATION AND DIAGNOSIS ON A SUBSEQUENT VISIT Routine 07/18/2024 8:45 AM EDT ORAL HYGIENE INSTRUCTIONS Routine 2024 8:45 AM EDT NUTRITIONAL COUNSELING FOR CONTROL OF DENTAL DISEASE Routine 07/18/2024 8:45 AM EDT PERIODIC ORAL EVALUATION - ESTABLISHED PATIENT Routine 07/18/2024 8:45 AM EDT CLEANING AND INSPECTION OF RPD, MAX Routine 07/18/2024 8:45 AM EDT DENTURE FOLLOWUP Routine 05/23/2024 9:30 AM EDT DENTURE ADJUSTMENT Routine 05/16/2024 10 :00 AM EST BITEWINGS - 4 RADIOGRAPHIC IMAGES Routine 01/18/2024 1:30 PM EST INTRAORAL - COMPLETE SERIES OF RADIOGRAPHIC IMAGES Routine 12/22/2022 2:00 PM EDT from Last 3 Months or Most Recently Relevant to Health Maintenance
== END 2024-08-16 12:29 | disposition home or self-care (01) ==
LOC: HO.HSMS 11:12
PROVIDERS: Visit Provider Psychiatry & Neurology Neurology
DX: R41.82 Altered mental status, unspecified (principal); G20.A1 Parkinson's disease without dyskinesia, without mention of fluctuations; G25.0 Essential tremor; G47.33 Obstructive sleep apnea (adult) (pediatric); R56.9 Unspecified convulsions
CPT/HCPCS: 99214

== ENCOUNTER → 2024-08-16 11:12 | Outpatient (BNVA) | payer MEDICARE, SELFPAY | PROVIDERS: Visit Provider Psychiatry & Neurology Neurology | DX: G20.A1 Parkinson's disease without dyskinesia, without mention of fluctuations (principal); G47.33 Obstructive sleep apnea (adult) (pediatric); R41.82 Altered mental status, unspecified | CPT/HCPCS: 99212 ==

== ENCOUNTER 2024-08-29 06:46 | Outpatient (REF) | payer MEDICARE, SELFPAY ==
[2024-08-29 06:49] LABS: MANUAL DIFF FLAG NO
[2024-08-29 07:19] LABS: Basophils Absolute Auto 0.1 X10*3/uL (0.0-0.2); Basophils Percent Auto 0.8 % (0-2); Eosinophils Absolute Auto 0.3 X10*3/uL (0.0-0.4); Hematocrit 39.5 % (42.0-52.0); Hemoglobin 13.7 g/dl (14.0-18.0); Imm Gran Abs Auto 0.02 X10*3/uL (0.00-0.03); Imm Gran Pct Auto 0.3 % (0.0-0.4); Lymphocytes Absolute Auto 2.4 X10*3/uL (1.2-4.9); Lymphocytes Percent Auto 33.3 % (20-40); Mean Corpuscular HGB Conc 34.7 g/dl (31.0-36.0); Mean Corpuscular Hemoglobin 32.8 pg (27.0-33.0); Mean Corpuscular Volume 94.5 fL (80.0-98.0); Monocytes Absolute Auto 0.6 X10*3/uL (0.1-1.2); Monocytes Percent Auto 7.6 % (2-11); Neutrophils Absolute Auto 3.9 x10*3/uL (2.0-8.3); Platelet Count 222 X10*3/uL (160-400); Red Blood Count 4.18 X10*6/uL (4.60-5.80); Red Cell Distribution Width 13.5 % (11.0-16.0); White Blood Count 7.2 X10*3/uL (4.8-10.8)
[2024-08-29 07:31] LABS: Estimated Average Glucose 146 mg/dL; Hemoglobin A1c % 6.7 % (<6.0)
== END 2024-08-29 06:47 | disposition home or self-care (01) ==
LOC: HO.HSH2E 06:46
PROVIDERS: Visit Provider Internal Medicine Endocrinology, Diabetes & Metabolism
DX: E11.9 Type 2 diabetes mellitus without complications (principal)
CPT/HCPCS: 36415; 83036; 85025

== ENCOUNTER 2024-10-04 07:00 | Outpatient (REF) | payer MEDICARE, SELFPAY ==
--- OUTSIDE RECORDS SUMMARY | 2024-10-04 07:03 | XMS_ITS | Patient Health Record ---
Author Organization [facility] Address [address] [place] [id number] Care Team Providers Care Nissan Sales Consultant Name Role Phone NONE, NONE Primary Care Provider Austin Cifuentes Unavailable [phone] Reason For Referral No Information Plan Of Treatment No Information
[2024-10-04 07:04] LABS: MANUAL DIFF FLAG NO
[2024-10-04 07:17] LABS: Hematocrit 42.7 % (42.0-52.0); Hemoglobin 14.6 g/dl (14.0-18.0); Imm Gran Abs Auto 0.04 X10*3/uL (0.00-0.03); Imm Gran Pct Auto 0.4 % (0.0-0.4); Lymphocytes Absolute Auto 2.3 X10*3/uL (1.2-4.9); Mean Corpuscular HGB Conc 34.2 g/dl (31.0-36.0); Mean Corpuscular Hemoglobin 32.7 pg (27.0-33.0); Mean Corpuscular Volume 95.5 fL (80.0-98.0); NRBC Abs Auto 0.000 X10*3/uL (0.0-0.012); NRBC Pct Auto 0.0 /100WBC (0.0-0.2); Platelet Count 191 X10*3/uL (160-400); Red Blood Count 4.47 X10*6/uL (4.60-5.80); White Blood Count 10.2 X10*3/uL (4.8-10.8)
[2024-10-04 07:31] LABS: Alanine Aminotransferase 20 U/L (0-40); Albumin Level 3.9 g/dL (3.5-5.0); Alkaline Phosphatase 107 U/L (39-117); Anion Gap 15 (12-20); Aspartate Amino Transferase 17 U/L (5-37); Blood Urea Nitrogen 16 mg/dL (9-16); Calcium 8.8 mg/dL (8.4-10.2); Carbon Dioxide 26 mmol/L (22-29); Chloride 102 mmol/L (96-108); Cholesterol 140 mg/dL (<200); Estimated Glomerular Filt Rate > 60; HDL Cholesterol 37 mg/dL (>40); Potassium 4.5 mmol/L (3.3-5.1); Sodium 138 mmol/L (135-145); Total Protein 6.7 g/dL (6.5-8.0); Triglycerides 98 mg/dL (<150)
[2024-10-04 07:37] LABS: Hemoglobin A1C 178.5364 umol/L; Total Hemoglobin (HGBA1C) 3820.7422 umol/L
[2024-10-04 08:00] LABS: Microalbum/Creatinine Ratio Ur 192.8 ug/mg cr (<30)
== END 2024-10-04 07:01 | disposition home or self-care (01) ==
LOC: HO.HSH2E 07:00
PROVIDERS: Visit Provider Internal Medicine Endocrinology, Diabetes & Metabolism
DX: E11.22 Type 2 diabetes mellitus with diabetic chronic kidney disease (principal); N18.9 Chronic kidney disease, unspecified
CPT/HCPCS: 36415; 80053; 80061; 82043; 82570; 83036; 85025

== ENCOUNTER 2024-10-17 15:38 | Outpatient (AMB) | payer MEDICARE, SELFPAY ==
--- NOTE | 2024-10-17 15:39 | A.OFFVIS_ITS ---
Intake Intake Visit Reasons: follow up- SP tube Intake Note: [facility] Patient is Present for SP TUBE Urology Medication: Terazosin Antibiotic Allergy: None Blood Thinner: Aspirin Drum Dyeing Machine Operator Required: No Accompanied by: Self / Same As Patient Allergies lisinopril Allergy (Verified 10/17/24 15:40) Unknown phenytoin (From Dilantin) Allergy (Verified 10/17/24 15:40) Unknown HPI HPI Comments History of Present Illness Details 10/17/24--FU --Neurogenic bladder--LV--06/13--Pleasant 83-year-old Resident [facility]. Suprapubic tube placed January 2023. Interval evaluation. Suprapubic tube site examined. Normal. Effective drainage Medications include terazosin 4 mg q.h.s. and finasteride 5 mg daily. These can both be ceased Add vitamin-C 1000 mg daily plus methenamine 1 g daily for chemo prophylaxis. Continue six-month follow-up. 18 fr SPtube draining well. Cont changes every 45 days/prn. 11/23/23--Saul is a pleasant 83 year o ld male patient who is a resident of [facility]. He has a past medical history of urinary retention, BPH, anemia, constipation, CVA, skin cancer, Parkinson's disease, essential tremor, obstructive sleep apnea, seizures, hyperlipidemia, hypertension, and diabetes. He is accompanied by his ex- during today's visit. He is being followed up on today for question of gross hematuria. In assessment of the patient today suprapubic tube site appears clean dry and intact and catheter is draining clear yellow urine however urine in Michele drainage bag does appear dark brown. Upon irrigation of Michele catheter no hematuria noted. Clear yellow urine irrigated. No pain or issues noted when i rrigating Michele catheter. Patient is a poor historian however when asked he denies any bothersome urinary issues or concerns. Ex- at bedside and offers no urinary issues or concerns at this time. In review of patient's MAR it appears he is complaint with urological medications. 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 In addition has Parkinson's Current therapy includes finasteride with terazosin High risk for recurrent UTI Suprapubic tube 02/03 [facility] Medical History (Updated 08/16/24 @ 11:39 by Vicky Pearson MD) Change in mental state GEORGE (acute kidney injury) Urine retention BPH (benign prostatic hyperplasia) Anemia Constipation CVA (cerebral vascular accident) Skin cancer (melanoma) Parkinson's disease Essential tremor Obstructive sleep apnea Seizures Hyperlipidemia HTN (hypertension) Diabetes Surgical History H/O brain surgery Family History Father Cancer Father Cancer Brother Heart attack Social History Alcohol intake: former Year quit: soci Patient Tobacco Use Status: Never used Tobacco Advance Directives Date on File: 01/04/23 Review of Systems Const All systems reviewed & are unremarkable except as noted in HPI and below Reports no additional complaints Eyes Reports no additional complaints ENT Reports no additional complaints Card Reports no additional complaints Resp Reports no additional complaints GI Reports no additional complaints Reports as per HPI Musc Reports no additional complaints Skin/Breast Reports system reviewed and no additional complaints, except as documented Neuro Reports no additional complaints Psych Reports no additional complaints Endo Reports no additional complaints Ramiro/Lymph Reports no additional complaints Aller/Immun Reports no additional complaints Assessment & Plan Assessment & Plan (1) Neurogenic urinary bladder disorder: Code(s): N31.9 - Neuromuscular dysfunction of bladder, unspecified Plan Continue to change suprapubic tube as ordered. No urological issues or concerns at this time. Follow-up in 6 months; if not sooner with any issues, concerns, and or questions. Patient Instructions: This note is constructed using voice recognition software. While every effort has been made to ensure accuracy account retention representative errors may have been included. Coding Level of Care Code 87887-Kbua Fac sub, low Diagnoses Neurogenic urinary bladder disorder N31.9
--- OUTSIDE RECORDS SUMMARY | 2024-10-17 16:03 | XMS_ITS | Patient Health Record ---
Author Organization [facility] Address [address] [place] [id number] Care Team Providers Care Eeg Technologist Name Role Phone NONE, NONE Primary Care Provider Austin Ciufentes Unavailable [phone] Reason For Referral No Information Plan Of Treatment No Information
--- OUTSIDE RECORDS SUMMARY | 2024-10-17 16:03 | XMS_ITS | Clinical Summary ---
Author Organization [facility] Address [address] [facility] [place] [address] Care Team Providers Care Software Technical Lead Name Role Phone Unavailable Primary Care Provider [...] mg by mouth in the morning. Active [place]-3 Fatty Acids (Fish Oil) 1000 MG capsule [...] mEq by mouth 2 times daily. Active furosemide (Lasix) 20 MG tablet Take 20 mg by mouth in the morning and 20 mg in the evening. Active ascorbic acid (Vitamin C) 500 MG tablet Take 500 mg by mouth Once per day. Active hydrocortisone 1 % cream Apply topically 2 times daily. Active capsaicin-mentho l-methyl salicylate (Ziks Arthritis Pain Relief) 0.025-1-12 % topical cream Apply topically 3 times daily. Active polycarbophil (Fibercon) 625 MG tablet Take 625 mg by mouth Once per day. 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 Stress test, EKG done sent to Scan Dec 05, 2015 Entered By: JACOBO COE Comment: [facility] Cardiology Dr. Mike Carrillo 01/01/16 Dec [...] Encounters Date Type Department Care Team Description 10/17/2024 8:45 AM EDT Office Visit [facility] [address] [place] [address] Shayy Tarango Arrived 07/25/2024 10:15 AM EDT Office Visit [facility] [address] [place] [address] Kristi Eckert 07/18/2024 8:45 AM EDT Office Visit [facility] [address] [place] [address] Jorge Alberto Quintero, JENNA from Last 3 Months Social History Tobacco [...] Care Team (Late st Contact Info) Description 11/28/2024 11:15 AM EDT Office Visit [facility] [address] [place] [address] Shayy Tarango Health Maintenance Due Date Last Done Comments [...] 06/21/2020, Additional history exists Influenza Vaccine (#1) 2024 , 11/25/2021, 11/25/2021, Additional history exists Dental X-Ray: Bitewings 01/18/2025 01/18/20 24, 09/28/2023, 12/22/2022 Dental Oral Exam 01/19/2025 07/18/2024, 08/2023, 09/28/2023, Additional history exists Dental Prophylaxis 04/20/2025 10/17/2024, 0 07/25/2024, 04/19/2024, Additional history exists Tobacco Screening 07/18/2025 07/18/2024 [...] Associated Diagnosis Comments CLEANING AND INSPECTION OF REM COMPLETE DENTURE, MAX Routine 10/17/2024 8:45 AM EDT ORAL HYGIENE INSTRUCTIONS Routine 2024 8:45 AM EDT PROPHYLAXIS - ADULT Routine 10/17/2024 8 :45 AM EDT TOPICAL APPLICATION OF FLUORIDE VARNISH Routine 10/17/2024 8:45 AM EDT CLEANING AND INSPECTION OF [...] RPD, MAX Routine 07/18/2024 8:45 AM EDT BITEWINGS - 4 RADIOGRAPHIC IMAGES Routine 01/18/2024 1:30 PM EST INTRAORAL - COMPLETE SERIES OF RADIOGRAPHIC IMAGES Routine 12/22/2022 2:00 PM EDT from Last 3 Months or Most Recently Relevant to Health Maintenance
== END 2024-10-17 16:30 | disposition home or self-care (01) ==
LOC: HO.HUSV 15:38
PROVIDERS: Visit Provider Urology
DX: N31.9 Neuromuscular dysfunction of bladder, unspecified (principal)
CPT/HCPCS: 99308

== ENCOUNTER 2024-10-25 06:00 | Outpatient (REF) | payer MEDICARE, SELFPAY ==
--- OUTSIDE RECORDS SUMMARY | 2024-10-25 06:04 | XMS_ITS | Patient Health Record ---
Author Organization [facility] Address [address] [place] [id number] Care Team Providers Care Field Artillery Senior Sergeant Name Role Phone NONE, NONE Primary Care Provider Austin Cifuentes Unavailable [phone] Reason For Referral No Information Plan Of Treatment No Information
[2024-10-25 06:05] LABS: MANUAL DIFF FLAG NO
[2024-10-25 06:29] LABS: Hematocrit 42.4 % (42.0-52.0); Hemoglobin 14.2 g/dl (14.0-18.0); Imm Gran Abs Auto 0.04 X10*3/uL (0.00-0.03); Imm Gran Pct Auto 0.4 % (0.0-0.4); Lymphocytes Absolute Auto 2.3 X10*3/uL (1.2-4.9); Mean Corpuscular HGB Conc 33.5 g/dl (31.0-36.0); Mean Corpuscular Hemoglobin 31.9 pg (27.0-33.0); Mean Corpuscular Volume 95.3 fL (80.0-98.0); NRBC Abs Auto 0.000 X10*3/uL (0.0-0.012); NRBC Pct Auto 0.0 /100WBC (0.0-0.2); Platelet Count 219 X10*3/uL (160-400); Red Blood Count 4.45 X10*6/uL (4.60-5.80); White Blood Count 9.6 X10*3/uL (4.8-10.8)
== END 2024-10-25 06:01 | disposition home or self-care (01) ==
LOC: HO.HSH2E 06:00
PROVIDERS: Visit Provider Internal Medicine Endocrinology, Diabetes & Metabolism
DX: E11.9 Type 2 diabetes mellitus without complications (principal)
CPT/HCPCS: 36415; 82947; 85025

== ENCOUNTER 2024-11-20 07:11 | Outpatient (REF) | payer MEDICARE, SELFPAY ==
--- OUTSIDE RECORDS SUMMARY | 2024-11-20 07:14 | XMS_ITS | Encounter Summary ---
Author Organization [facility] [employer] Address [address] [place] [address] [place] [address] Care Team Providers Care Work Ticket Distributor Name Role Phone Unavailable Primary Care Provider Unavailabl e Encounter Details Date Type Department Care Team (Late st Contact Info) Description 03/11/2023 Abstract [facility] [address] [place] [address] Cory Ramos Social History Tobacco Use Types [...] Description 11/28/2024 11:15 AM EDT Office Visit [facility] [address] [place] [address] Shayy Tarango documented as of this encounter Visit Diagnoses Not on filedocumented in this encounter
--- OUTSIDE RECORDS SUMMARY | 2024-11-20 07:14 | XMS_ITS | Patient Health Record ---
Author Organization [facility] Address [address] [place] [phone] Care Team Providers Care Supervisor Mail Carriers Name Role Phone NONE, NONE Primary Care Provider Austin Cifuentes Unavailable [phone] Reason For Referral No Information Plan Of Treatment No Information
--- OUTSIDE RECORDS SUMMARY | 2024-11-20 07:14 | XMS_ITS | Encounter Summary ---
Author Organization [facility] Address [address] [facility] [address] [place] [address] Care Team Providers Care Ear Nose Throat Physician Name Role Phone Unavailable Primary Care Provider Unavailabl e Encounter Details Date Type Department Care Team (Late Contact Info) Description 02/21/2023 Abstract [facility] [address] [place] [address] Jorge Alberto Quintero, DMD [address] [place] [address] Social History Tobacco Use Types Packs/Day Years [...] Encounters Date Type Department Care Team (Late Contact Info) Description 11/28/2024 11:15 AM EDT Office Visit [facility] [address] [place] [address] Shayy Tarango documented as of this encounter Visit Diagnoses Not on filedocumented in this encounter
--- OUTSIDE RECORDS SUMMARY | 2024-11-20 07:14 | XMS_ITS | Clinical Summary ---
Author Organization [facility] Address [address] [facility] [address] [place] [address] Care Team Providers Care Straddle Truck Operator Name Role Phone Unavailable Primary Care [...] mg by mouth in the morning. Active [place]-3 Fatty Acids (Fish Oil) 1000 MG capsule [...] 05, 2015 Entered By: JACOBO COE Comment: [facility] 11/29/15-11/30/15. Stress test, EKG done sent to Scan Dec 05, 2015 Entered By: JACOBO COE Comment: [facility] Cardiology Dr. Mike Carrillo 01/01/16 Dec [...] int hemorrhoid Sep 25, 2015 Entered By: JCAOBO COE Comment: 01/21/2012 No polyps, repeat 5 [...] Description 10/17/2024 8:45 AM EDT Office Visit [facility] [address] [place] [address] Shayy Tarango from Last 3 Months Social History Tobacco [...] Description 11/28/2024 11:15 AM EDT Office Visit [facility] [address] [place] [address] Shayy Tarango Health Maintenance Due Date Last [...] 08/18/2022 08/18/2012, 11/27/2010 COVID-19 Vaccine ( season) 2024 01/26/2022, 02/14/2021, 06/21/2020, Additional history exists Influenza [...] FLUORIDE VARNISH Routine 10/17/2024 8:45 AM EDT PERIODIC ORAL EVALUATION - ESTABLISHED PATIENT Routine 07/18/2024 8:45 AM EDT BITEWINGS - 4 RADIOGRAPHIC IMAGES Routine 01/18/2024 1:30 PM EST INTRAORAL - COMPLETE SERIES OF RADIOGRAPHIC IMAGES Routine 12/22/2022 2:00 PM EDT from Last 3 Months or Most Recently Relevant to Health Maintenance
[2024-11-23 18:03] LABS: TS Negative Control Passed; TS Panel A 1; TS Panel B 0; TS Positive Control Passed; TSpotTB Negative (Negative)
== END 2024-11-20 07:12 | disposition home or self-care (01) ==
LOC: HO.HSH2E 07:11
PROVIDERS: Visit Provider Internal Medicine Endocrinology, Diabetes & Metabolism
DX: Z11.1 Encounter for screening for respiratory tuberculosis (principal); I10 Essential (primary) hypertension
CPT/HCPCS: 36415; 86481